=== PATIENT | male | born 1980 | race Two or more races ===

== ENCOUNTER 2020-03-12 15:56 | Outpatient (REF) | payer OTHER, SELFPAY | END 2020-03-12 15:57 | disposition home or self-care (01) | LOC: HO.LAB 15:56 | PROVIDERS: Visit Provider Internal Medicine | DX: Z20.822 Contact with and (suspected) exposure to COVID-19 (principal) | CPT/HCPCS: 36415; C9803; U0003 ==

== ENCOUNTER 2020-03-16 14:44 | Outpatient (REF) | payer OTHER, SELFPAY | END 2020-03-16 14:45 | disposition home or self-care (01) | LOC: HO.LAB 14:44 | PROVIDERS: Visit Provider Internal Medicine | DX: Z20.822 Contact with and (suspected) exposure to COVID-19 (principal) | CPT/HCPCS: 36415; C9803; U0003 ==

== ENCOUNTER 2020-04-03 16:30 | Outpatient (REF) | payer OTHER, SELFPAY | END 2020-04-03 16:31 | disposition home or self-care (01) | LOC: HO.LAB 16:30 | PROVIDERS: Visit Provider Internal Medicine | DX: Z20.822 Contact with and (suspected) exposure to COVID-19 (principal) | CPT/HCPCS: 36415; C9803; U0003; U0005 ==

== ENCOUNTER 2020-06-01 15:47 | Outpatient (REF) | payer OTHER, SELFPAY | END 2020-06-01 15:48 | disposition home or self-care (01) | LOC: HO.LAB 15:47 | PROVIDERS: Visit Provider Internal Medicine | DX: Z20.822 Contact with and (suspected) exposure to COVID-19 (principal) | CPT/HCPCS: C9803; U0003; U0005 ==

== ENCOUNTER 2023-10-01 08:51 | Outpatient (AMB) | payer OTHER, SELFPAY ==
[2023-10-01 08:55] VITALS: BP 138/80; PULSE 85; O2SAT 98; BMI 51.6
--- NOTE | 2023-10-01 08:55 | A.OFFPC_ITS ---
Vital Signs 10/01/23 08:55 Height 5 ft 6 in Weight 320 lb BMI 51.6 BP 138/80 Blood Pressure Location Lt brachial Position Sitting Pulse 85 Pulse Source Pulse Oximeter Pulse Oximetry (%) 98 Oxygen Delivery Method Room Air Intake Visit Reasons: Over due for PE Allergies No Known Allergies Allergy (Verified 10/01/23 09:04) Medication List - Last Reconciled 10/01/23 by Teto Silva PA-C hydrochlorothiazide 12.5 mg PO DAILY 90 days miscellaneous medical supply 1 ea miscellaneous DAILY 99 days miscellaneous medical supply Prosthetic foot shell and Flexible protective cover. Prosthesis, leg As directed topiramate (Topamax) 50 mg PO BEDTIME 90 days Tobacco use date assessed: 10/01/23 Dental Screening Dental Screen Date: 10/01/23 Did you have a dental visit in the last 12 months?: Yes Did you have a dental problem in the last 6 months where you did not have access to dental care?: No Was dental information given to patient?: Patient has dentist HPI Over due for PE HPI0 Details Patient is a 43-year-old male with a past medical history significant for NF, right below-knee amputation, obesity, hypertension. Concerns--> would like to see urologist to discuss vasectomy. Also reports he has been having a rash on his left lower extremity with the appearance of fungal dermatitis. He is willing to try a cream. .. 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 Need new scripts for Right lower extremities prothestic. .. HTN: Blood pressure acceptable today in office has not been monitoring at home. He admits he has not been taking hydrochlorothiazide. Has been trying to manage his blood pressure with lifestyle and dietary modifications. .. Obesity: Patient does understand his BMI is well over 30. He does note he has a problem with overeating and has trialed Topamax 25 mg at night which has not helped him lose any weight. PLAN: He would like to trial Wegovy for weight loss. Vaccines: Up-to-date with tetanus, COVID vaccine, declines flu vaccine [facility] Surgical History No pertinent past surgical history Family History (Updated 10/01/23 @ 09:08 by Teto Silva PA-C) Mother Diabetes High blood pressure Father Prostate cancer Social History (Updated 10/01/23 @ 09:09 by Teto Silva PA-C) Housing: Apartment Alcohol intake: never Patient Tobacco Use Status: Never used Tobacco Tobacco use type: Cigarette e-Cigarette/Vaping Use: Never Used Second Hand Smoke Exposure: No service: No Current occupational status: employed Current occupation: [employer] Cognitive needs: Yes (prostetic leg) Hearing needs: No Vision needs: No Questionnaire PHQ-9 Over the last 2 weeks, how often have you been bothered by any of the following problems? 1. Little interest or pleasure in doing things: not at all 2. Feeling down, depressed, or hopeless: not at all 3. Trouble falling or staying asleep, or sleeping too much: not at all 4. Feeling tired or having little energy: not at all 5. Poor appetite or overeating: not at all 6. Feeling bad about yourself - or that you are a failure or have let yourself or your family down: not at all 7. Trouble concentrating on things, such as reading the newspaper or watching television: not at all 8. Moving or speaking so slowly that other people could have noticed. Or the opposite - being so fidgety or restless that you have been moving around a lot more than usual: not at all 9. Thoughts that you would be better off or of hurting yourself in some way: not at all Total score: 0 Depression Screening Interpretation: Negative Depression Screening Done: Yes 93102 - PHQ-9 Billing: Yes Source: Developed by Drs. Diego Magaña, Destini Maddox, Bhavesh Rivera and colleagues, with an educational pk from [employer] Thrive Questionnaire Date Thrive assessed: 10/01/23 I am a: Patient What is your living situation today?: I have a steady place to live Within the past 12 months, did the food you bought not last and you didn't have the money to get more?: Never true Within the past 12 months, did you worry whether your food would run out before you got money to buy more?: Never true Do you have trouble paying for medicines?: No Do you have trouble getting transportation to medical appointments?: No Do you have trouble paying your heating and electricity bill?: No Do you have trouble taking care of your child, family member or friend?: No Do you have trouble with day-to-day activities such as bathing, preparing meals, shopping, managing finances, etc.?: No Are you currently unemployed and looking for a job?: No Are you interested in more education?: No Currently or been in a relationship where the following occur: No concerns reported THRIVE Score: 0 AUDIT C Alcohol Use Questionnaire (AUDIT-C) 1. How often do you have a drink containing alcohol?: 2-4 times a month 2. How many drinks containing alcohol do you have on a typical day when you are drinking?: 10 or more 3. How often do you have six or more drinks on one occasion?: Never Total Score: 6 SIM-7 AMB Questionnaire SIM-7 Date SIM - 7 assessed: 10/01/23 Feeling nervous, anxious, or on edge: 0 = Not at all Not being able to stop or control worryin = Not at all Worrying too much about different things: 0 = Not at all Trouble relaxin = Not at all Being so restless that it is hard to sit still: 0 = Not at all Becoming easily annoyed or irritable: 0 = Not at all Feeling afraid as if something awful might happen: 0 = Not at all Total SIM-7 score (0-4 normal; 5-9 mild; 10-14 moderate; 15-21 severe): 0 Source: Developed by Drs. Diego Magaña, Destini Maddox, Bhavesh Rivera and colleagues, with an educational pk from [employer] SIM-7 Assessment Billing SIM-7 Assessment Tool: SIM-7 Assessment 96781 Review of Systems Const Denies body aches, Denies chills, Denies excessive sweating, Denies fatigue, Denies fever(s) and Denies headache(s) Eyes Denies blurry vision ENT Denies dysphagia, Denies vertigo, Denies dizziness, Denies headache(s), Denies hearing loss and Denies tinnitus Card Denies chest pain, Denies chest pain with activity, Denies syncope, Denies irregular heart rhythm and Denies dyspnea Resp Denies chest congestion, Denies cough, Denies hemoptysis, Denies dyspnea and Denies wheezing GI Denies abdominal pain, Denies melena, Denies hematochezia, Denies coffee ground emesis, Denies dysphagia, Denies diarrhea, Denies nausea and Denies vomiting Denies difficulty urinating, Denies dysuria, Denies urinary frequency, Denies urinary hesitancy and Denies urinary urgency Musc Denies arthralgias, Denies limited range of motion, Denies muscle cramps and Denies muscle weakness Skin/Breast Denies rash and Denies skin ulcer Neuro Denies Abnormal speech present, Denies confusion, Denies vertigo, Denies dizziness, Denies syncope, Denies headache(s), Denies memory loss and Denies seizure-like activity Psych Denies anxiety, Denies confusion, Denies depression, Denies memory loss, Denies panic attacks and Denies paranoia Endo Denies excessive sweating, Denies fatigue, Denies flushing, Denies polydipsia and Denies polyuria Aller/Immun Denies wheezing Physical exam (Primary Care) Vital Signs: Last Vital Signs Pulse 85 10/01/23 08:55 BP 138/80 10/01/23 08:55 Pulse Ox 98 10/01/23 08:55 Oxygen Delivery Method Room Air 10/01/23 08:55 BMI result Body Mass Index 51.6 BMI Assessment/Plan discussion: High BMI High, discussed plan: lifestyle, weight reduction, dietary and physical activity Tobacco/Smoking Status: Tobacco use Status Tobacco use date assessed 10/01/23 10/01/23 09:01 Patient Tobacco Use Status Never used Tobacco 10/01/23 09:01 Tobacco use type Cigarette 10/01/23 09:01 e-Cigarette/Vaping Use Never Used 10/01/23 09:01 PHQ-9: PHQ-9 Score PHQ-9: Total score 0 10/01/23 09:01 Depression Screening Interpretation: Negative Thrive Assessment: Date of Thrive Assessment Date Thrive assessed 10/01/23 10/01/23 09:01 Currently or been in a relationship where the following occur: No concerns reported Const Other: OBESE General: cooperative, comfortable, no acute distress, alert and awake; No confusion Orientation/consciousness: oriented to person, oriented to place, patient oriented x3 and No confusion HENMT Head: Yes normocephalic Ears: external ears normal and TM's normal bilaterally Face and sinus: No sinus tenderness Mouth: Normal oral and palatal mucosa present and tongue normal Teeth and gingiva: dentition normal and gingiva normal Throat: Yes posterior oropharynx normal, Yes tonsils normal and Yes uvula midline Eyes Conjunctivae: conjunctivae normal Sclerae: sclerae normal Pupils: Equal, round and reactive pupils present EOM: EOMs intact bilaterally Direct Ophthalmoscopy: No no photophobia Neck Neck: Yes no lymphadenopathy, No tender and Yes no JVD Thyroid: Thyroid normal Carotids: no bruits Chest Chest palpation & inspection: no tenderness Resp Effort & Inspection: normal respiratory effort, no audible wheezes, not labored and no stridor Auscultation: no crackles, no rales, no rhonchi and no wheezes Cardio Jugular venous distension: no JVD Rate: regular rate, not bradycardic and not tachycardic Rhythm: regular rhythm Bruits: no carotid bruits Peripheral pulses: Peripheral pulses 2+ throughout GI Inspection: Yes normal to inspection, No abdominal wall ecchymosis and No visible herniation Palpation (GI): Soft to palpation, nontender, no guarding, not rigid and No hepatosplenomegaly present Auscultation: normoactive bowel sounds General: Yes no CVA tenderness Back/Spine/Pelvis Back: no CVA tenderness and No back tenderness Cervical Spine: cervical ROM normal Thoracic/Lumbar Spine: thoracic and lumbar spine normal to inspection, straight leg raise negative bilaterally, No thoraco-lumbar ROM limited and No lumbar spinal tenderness Skin Lesions: no lesions Rashes: no rashes Wounds: no wounds Neuro General: oriented to person, oriented to place, patient oriented x3, CN's II-XI intact bilaterally and No confusion Cranial nerves: Yes Equal, round and reactive pupils present and Yes Normal accommodation reflex present Cognition (Neuro): normal cognition Speech: No Abnormal speech present Gait exam (Neuro): Normal gait present Motor exam (neuro): 5/5 motor strength present throughout Extrem Right upper extremity: full ROM; no cyanosis Left upper extremity: full ROM; no cyanosis Right lower extremity: no edema Left lower extremity: no edema Psych Appearance: grossly normal Mental Status: mental status grossly normal Affect: normal affect Attitude: cooperative Thought process: Normal thought process present Assessment and Plan Assessment & Plan (1) Annual physical exam: Code(s): Z00.00 - Encounter for general adult medical examination without abnormal findings (2) History of right below knee amputation: Code(s): Z89.511 - Acquired absence of right leg below knee Plan: Needs new script for prosthetic leg, gel liners and shell Patient go stay hangers for fittings (3) Neurofibromatosis: Code(s): Q85.00 - Neurofibromatosis, unspecified Plan: Patient with a history of neurofibromatosis as a child which has led to his Right lower extremity. He does have nodules over his right upper extremity and torso that often getting inflamed and irritated. He would like to see a truss maker for evaluation and possible removal. (4) HTN (hypertension): Code(s): I10 - Essential (primary) hypertension Qualifiers: Hypertension type: primary hypertension Qualified Code(s): I10 - Essential (primary) hypertension Plan: Blood pressure acceptable today in office,. Has not been taking hydrochlorothiazide 12.5 . Advised to restart medication. Goal blood pressures to be below 140/90 (5) Obese: Code(s): E66.9 - Obesity, unspecified Qualifiers: Obesity type: due to excess calories Obesity classification: adult class 3 (BMI >= 40) Serious obesity comorbidity presence: with serious comorbidity Body mass index: BMI 50.0-59.9 Qualified Code(s): E66.01 - Morbid (severe) obesity due to excess calories; Z68.43 - Body mass index [BMI] 50.0- 59.9, adult Plan: Patient does understand his BMI is over 50, has tried p.o. medication should his Topamax though has not been effective. Has struggled losing weight. He is willing to try a GLP 1 to help him lose weight. He does have comorbidity of hypertension. Will start with Wegovy 0.25 and follow-up with patient in 6 weeks for weight check (6) Vasectomy evaluation: Code(s): Z30.09 - Encounter for other general counseling and advice on contraception Plan: Patient interested in vasectomy. Will refer to Urology for evaluation. (7) Fungal dermatitis: Code(s): B36.9 - Superficial mycosis, unspecified Plan: Has what appears to be fungal dermatitis over his left lower extremity. Will supply patient with clotrimazole antifungal cream Orders: Orders Microalbumin, Random (w Creat) Today I10 - Essential (primary) hypertension Comprehensive [place]. Panel Fast Today I10 - Essential (primary) hypertension Complete Blood Count no Diff Today I10 - Essential (primary) hypertension Prostate Specific Antigen Scr Today I10 - Essential (primary) hypertension, Z12.5 - Encounter for screening for malignant neoplasm of prostate Referrals Urology Referral Z30.09 - Encounter for other general counseling and advice on contraception Medications: New semaglutide (weight loss) (Wegovy) administer weeks 1 through 4 of therapy 0.25 mg (0.5 mL) subcut QWEEK 4 weeks 2 mL 0RF E66.01 - Morbid (severe) obesity due to excess calories, I10 - Es sential (primary) hypertension, Z68.43 - Body mass index [BMI] 50.0-59.9, adult clotrimazole-betamethasone 1-0.05 % 1 appl topical BID 30 days 45 grams 0RF B36.9 - Superficial mycosis, unspecified Discontinued hydrochlorothiazide Discontinued Reason: Doctor's Order 12.5 mg PO DAILY 90 days 90 tabs 1RF I10 - Essential (primary) hypertension topiramate (Topamax) Discontinued Reason: Doctor's Order 50 mg PO BEDTIME 90 days 90 tabs 1RF E66.01 - Morbid (severe) obesity due to excess calories, I10 - Essential (primary) hypertension, Z68.43 - Body mass index [BMI] 50.0-59.9, adult Patient Instructions: Goal: Blood pressure to remain below 140/90 Barriers: Adherence to physical activity and healthy eating habits Coding Level of Care Code Est Pt Prev Care 40-64y(29472) Diagnoses Annual physical exam Z00.00 History of right below knee amputation Z89.511 Neurofibromatosis Q85.00 Primary hypertension I10 Hypertension type: primary hypertension Class 3 severe obesity due to excess calories with serious comorbidity and body mass index (BMI) of 50.0 to 59.9 in adult E66.01; Z68.43 Obesity type: due to excess calories Obesity classification: adult class 3 (BMI >= 40) Serious obesity comorbidity presence: with serious comorbidity Body mass index: BMI 50.0-59.9 Vasectomy evaluation Z30.09 Fungal dermatitis B36.9 Additional Codes SIM-7 Assessment Billing - SIM-7 Assessment Tool: SIM-7 Assessment [id number] ([id number])
== END 2023-10-01 09:32 | disposition home or self-care (01) ==
PROVIDERS: PCP Physician Assistant; Visit Provider Physician Assistant
DX: Z00.00 Encounter for general adult medical examination without abnormal findings (principal); Z89.511 Acquired absence of right leg below knee; Q85.00 Neurofibromatosis, unspecified; E66.01 Morbid (severe) obesity due to excess calories; Z68.43 Body mass index [BMI] 50.0-59.9, adult; I10 Essential (primary) hypertension; Z30.09 Encounter for other general counseling and advice on contraception; B36.9 Superficial mycosis, unspecified
CPT/HCPCS: 99396

== ENCOUNTER 2023-11-13 11:32 | Outpatient (REF) | payer OTHER, SELFPAY ==
[2023-11-13 12:38] LABS: Hematocrit 42.3 % (42.0-52.0); Mean Corpuscular HGB Conc 35.5 g/dl (31.0-36.0); Mean Corpuscular Hemoglobin 29.6 pg (27.0-33.0); Mean Corpuscular Volume 83.4 fL (80.0-98.0); Mean Platelet Volume 11.2 fL (9.4-12.4); Platelet Count 239 X10*3/uL (160-400); Red Blood Count 5.07 X10*6/uL (4.60-5.80); Red Cell Distribution Width 12.6 % (11.0-16.0); White Blood Count 6.7 X10*3/uL (4.8-10.8)
[2023-11-13 12:58] LABS: Alanine Aminotransferase 24 U/L (0-40); Albumin Level 3.7 g/dL (3.5-5.0); Alkaline Phosphatase 66 U/L (39-117); Anion Gap 10 (12-20); Aspartate Amino Transferase 19 U/L (5-37); Bilirubin Total 0.7 mg/dL (0.0-1.0); Blood Urea Nitrogen 13 mg/dL (9-16); Calcium 8.5 mg/dL (8.4-10.2); Carbon Dioxide 25 mmol/L (22-29); Chloride 108 mmol/L (96-108); Estimated Glomerular Filt Rate > 60; Glucose Fasting 82 mg/dL (60-99); Potassium 3.9 mmol/L (3.3-5.1); Sodium 139 mmol/L (135-145)
[2023-11-13 13:12] LABS: Microalbum/Creatinine Ratio Ur 10.5 ug/mg cr (<30)
== END 2023-11-13 11:33 | disposition home or self-care (01) ==
LOC: HO.LAB 11:32
PROVIDERS: PCP Physician Assistant; Visit Provider Physician Assistant
DX: I10 Essential (primary) hypertension (principal); Z12.5 Encounter for screening for malignant neoplasm of prostate
CPT/HCPCS: 36415; 80053; 82043; 82570; 84153; 85027

== ENCOUNTER 2023-11-18 15:16 | Outpatient (AMB) | payer OTHER, SELFPAY ==
[2023-11-18 15:28] VITALS: BP 128/82; PULSE 90; O2SAT 96; BMI 52.0
--- NOTE | 2023-11-18 15:28 | MHC.PC.OV ---
Vital Signs 11/18/23 15:28 Height 5 ft 6 in Weight 322 lb 8 oz BMI 52.0 BP 128/82 Blood Pressure Location Lt brachial Position Sitting Pulse 90 Pulse Source Pulse Oximeter Pulse Oximetry (%) 96 Oxygen Delivery Method Room Air Intake Visit Reasons: f/u Weight check Rattan Worker Required: No Accompanied by: Self / Same As Patient Allergies No Known Allergies Allergy (Verified 11/18/23 15:39) Medication List - Last Reconciled 11/18/23 by Teto Silva PA-C clotrimazole-betamethasone 1-0.05 % 1 appl topical BID 30 days miscellaneous medical supply 1 ea miscellaneous DAILY 99 days miscellaneous medical supply Prosthetic foot shell and Flexible protective cover. Prosthesis, leg As directed semaglutide (weight loss) (Wegovy) 0.25 mg (0.5 mL) subcut QWEEK 4 weeks Tobacco use date assessed: 10/01/23 Dental Screening Dental Screen Date: 10/01/23 HPI f/u Weight check HPI Details Patient is a 43-year-old male here today for follow-up visit. Patient is Bulgarian-speaking only thus used a remote communications programmer. At last visit we discussed his weight and he was interested in starting a GLP 1. Unfortunately unable to receive wegovy due to some insurance reason. [facility] Surgical History No pertinent past surgical history Family History Mother Diabetes High blood pressure Father Prostate cancer Social History Housing: Apartment Alcohol intake: never Patient Tobacco Use Status: Never used Tobacco Tobacco use type: Cigarette e-Cigarette/Vaping Use: Never Used Second Hand Smoke Exposure: No service: No Current occupational status: employed Current occupation: [employer] Cognitive needs: Yes (prostetic leg) Hearing needs: No Vision needs: No Questionnaire Thrive Questionnaire Date Thrive assessed: 10/01/23 Are you currently unemployed and looking for a job?: No SIM-7 AMB Questionnaire SIM-7 Date SIM - 7 assessed: 10/01/23 Source: Developed by Drs. Diego Magaña, Destini Maddox, Bhavesh Rivera and colleagues, with an educational pk from [employer]. Review of Systems Const Denies headache(s) Eyes Denies loss of vision ENT Denies vertigo, Denies dizziness, Denies headache(s) and Denies sore throat Card Denies chest pain, Denies leg edema and Denies lightheadedness Resp Denies cough, Denies hemoptysis and Denies wheezing GI Denies abdominal pain, Denies melena, Denies constipation, Denies diarrhea and Denies vomiting Denies dysuria, Denies urinary frequency and Denies urinary urgency Musc Denies arthralgias, Denies joint swelling, Denies numbness and Denies tingling Neuro Denies Abnormal speech present, Denies behavioral changes, Denies vertigo, Denies dizziness, Denies headache(s), Denies loss of vision, Denies memory loss, Denies numbness and Denies tingling Psych Denies anxiety, Denies behavioral changes, Denies depression, Denies memory loss and Denies panic attacks Naveen/Lymph Denies easy bleeding and Denies easy bruising Aller/Immun Denies wheezing Physical exam (Primary Care) Vital Signs: Last Vital Signs Pulse 90 11/18/23 15:28 BP 128/82 11/18/23 15:28 Pulse Ox 96 11/18/23 15:28 Oxygen Delivery Method Room Air 11/18/23 15:28 BMI result Body Mass Index 52.0 Tobacco/Smoking Status: Tobacco use Status Tobacco use date assessed 10/01/23 11/18/23 15:28 Patient Tobacco Use Status Never used Tobacco 11/18/23 15:28 Tobacco use type Cigarette 11/18/23 15:28 e-Cigarette/Vaping Use Never Used 11/18/23 15:28 Thrive Assessment: Date of Thrive Assessment Date Thrive assessed 10/01/23 11/18/23 15:28 Const General: healthy appearing, no acute distress, alert and awake Nutritional Appearance: well nourished Orientation/consciousness: oriented to person, oriented to place and oriented to time HENMT Ears: TM's normal bilaterally General nose exam: Normal nasal mucous membranes and turbinates present Eyes Conjunctivae: conjunctivae normal Sclerae: sclerae normal Pupils: Equal, round and reactive pupils present Neck Neck: Yes no lymphadenopathy and Yes no JVD Thyroid: Thyroid normal Carotids: no bruits Resp Effort & Inspection: normal respiratory effort and not tachypneic Auscultation: no crackles, no rales, no rhonchi and no wheezes Cardio Rate: regular rate Rhythm: regular rhythm Heart sounds: no murmurs and normal S1 and S2 GI Palpation (GI): Soft to palpation, nontender, no hepatomegaly and no splenomegaly Auscultation: normal bowel sounds Skin General skin exam: no rashes or lesions noted and dry skin Neuro General: oriented to person, oriented to place and oriented to time Cranial nerves: Yes Equal, round and reactive pupils present Speech: No Abnormal speech present Gait exam (Neuro): Normal gait present Motor exam (neuro): no tremor noted Extrem Right upper extremity: full ROM Left upper extremity: full ROM Right lower extremity: full ROM; no edema Left lower extremity: full ROM; no edema Psych Mental Status: mental status grossly normal Speech and movement: Normal speech and movement present Affect: normal affect Attitude: cooperative Thought process: Normal thought process present Assessment and Plan Assessment & Plan (1) Obese: Code(s): E66.9 - Obesity, unspecified Qualifiers: Body mass index: BMI 50.0-59.9 Obesity classification: adult class 3 (BMI >= 40) Obesity type: due to excess calories Serious obesity comorbidity presence: with serious comorbidity Qualified Code(s): E66.01 - Morbid (severe) obesity due to excess calories; Z68.43 - Body mass index [BMI] 50.0-59.9, adult Plan: Patient does understand his BMI is over 50, has tried p.o. medication should his Topamax though has not been effective. Has struggled losing weight and has been trying with lifestyle modification for over 3 months.. We have prescribed Wegovy though has not been improved by insurance. We will be trying a prior approval to see if we can get medication approved as he would benefit from this medication. Losing weight would help reduce his blood pressure, cardiovascular risk and he is an amputee thus will reduce his risk of skin breakdown at his amputation site Coding Level of Care Code Est Pt Level 3 (89788) Diagnoses Class 3 severe obesity due to excess calories with serious comorbidity and body mass index (BMI) of 50.0 to 59.9 in adult E66.01; Z68.43 Body mass index: BMI 50.0-59.9 Obesity classification: adult class 3 (BMI >= 40) Obesity type: due to excess calories Serious obesity comorbidity presence: with serious comorbidity
== END 2023-11-18 15:50 | disposition home or self-care (01) ==
PROVIDERS: PCP Physician Assistant; Visit Provider Physician Assistant
DX: E66.01 Morbid (severe) obesity due to excess calories (principal); Z68.43 Body mass index [BMI] 50.0-59.9, adult

== ENCOUNTER → 2023-11-18 15:16 | Outpatient (BNVA) | payer OTHER, SELFPAY | PROVIDERS: PCP Physician Assistant; Visit Provider Physician Assistant | DX: E66.01 Morbid (severe) obesity due to excess calories (principal); Z68.43 Body mass index [BMI] 50.0-59.9, adult ==

== ENCOUNTER 2024-01-05 15:32 | Outpatient (AMB) | payer OTHER, SELFPAY ==
--- NOTE | 2024-01-05 15:51 | MHC.OFFVIS ---
Intake Visit Reasons: Vasectomy Consult(pt N/S Last Visit) Intake Note: New patient is present for Vasectomy Consult Has 1 Child Can Filling Room Sweeper Required: No Beauty Director: Beauty Director Present Accompanied by: Spouse Allergies No Known Allergies Allergy (Verified 01/05/24 16:11) HPI Comments Details: Kaleb is a very pleasant male. He is a patient of Dr. Silva. He is seen for the following urologic condition - anxiety about health - Vasectomy evaluation Vasectomy evaluation The patient presents for vasectomy consultation. He is currently He has fathered - to child, with a single partner. The youngest child is - older than 1 year. His partner is aware and permissive for a vasectomy Current form of control is barrier. The vasectomy may be complicated due to a history of [no] complicating issues, inguinal hernia repair, orchidopexy, history of orchitis, orchiectomy. Patient education has been provided via AUA video, via printed information, risks of failure, recovery time, bruising and potential pain syndrome have been stressed Discussion today focused on the presence of vasectomy and the risks, benefits and alternatives that are available. Vasectomy as intended as a permanent form of control. Printed information and literature was provided to the patient. Overall there is a one in 2500 failure rate. This can occur at any time after vasectomy. Risks were discussed highlighting hematoma, spermatocele, epididymal congestion, development of sperm antibodies, and development of chronic pain estimated between 1-5%. The procedure was reviewed in detail. Anatomical diagrams of the male genitalia were used to explain the location of the vas deferens. The vas deferens will be transected, the proximal end will be cauterized, a metal clip would be applied to separate the 2 vas deferens ends. It was explained the procedure will be done in the office and takes approximately 10-15 minutes. Less common problems that arise with vasectomy include hematoma, bleeding, allergic reaction to anesthetic, epididymal infection, epididymal congestion, scrotal discomfort, spermatic leak, spermatic granuloma and the possibility of antisperm antibodies. He understands these risks and wishes to proceed. Consent was signed at the office today. He also understands that it takes 12 weeks for sperm to fully clear the system. He will need to provide a semen sample at 12 weeks and if this is not clear a 2nd sample at 16 weeks. Medical clearance to stop using protection will only be provided if he satisfies published criteria for sperm clearance. [facility] Surgical History No pertinent past surgical history Family History Mother Diabetes High blood pressure Father Prostate cancer Social History Housing: Apartment Alcohol intake: never Patient Tobacco Use Status: Never used Tobacco Tobacco use type: Cigarette e-Cigarette/Vaping Use: Never Used Second Hand Smoke Exposure: No service: No Current occupational status: employed Current occupation: [employer] Cognitive needs: Yes (prostetic leg) Hearing needs: No Vision needs: No Review of Systems Const Denies chills and Denies fever(s) Card Reports no additional complaints and Denies syncope Resp Denies cough GI Denies abdominal pain and Denies heartburn Reports as per HPI and Denies change in libido Neuro Denies syncope Psych Denies change in libido Endo Denies change in libido Physical Exam Const General: cooperative, healthy appearing, comfortable and no acute distress Orientation/consciousness: patient oriented x3 HEENT Face and sinus: Yes normal facial exam Mouth: moist mucous membranes Neck Neck: Yes normal visual inspection, Yes full ROM and Yes trachea midline Chest Chest palpation & inspection: normal inspection of the chest Resp Effort & Inspection: normal respiratory effort, able to speak in complete sentences and no respiratory distress GI Inspection: Yes normal to inspection Back/Spine/Pelvis Cervical Spine: normal cervical lordosis Thoracic/Lumbar Spine: thoracic and lumbar spine normal to inspection Skin General skin exam: no rashes or lesions noted Neuro General: patient oriented x3, gait normal, tone normal and moves all extremities Extrem General: Yes normal to inspection and Yes capillary refill normal Assessment & Plan Assessment & Plan (1) Anxiety about health: Code(s): R45.89 - Other symptoms and signs involving emotional state Category: Medical Plan Plan vasectomy Medications: New acetaminophen-codeine 300-30 mg Taken each night after vasectomy to help sleep if needed 1 tab PO Q8H 9 tabs 0RF 3 days R4.89 - Other symptoms and signs involving emotional state diazepam Take medication after arrival at office 2 mg PO BID PRN 2 tabs 0RF anxiety 1 day R45.89 - Other symptoms and signs involving emotional state Patient Instructions: Imaging studies, laboratory and physical exam results were discussed and reviewed in detail. No major barriers to patient understanding were identified. An opportunity to ask questions regarding the treatment plan was provided. All questions were answered. The patient expressed understanding and agreement with the above treatment plan. The patient is aware they should contact our office by phone for worsening of their current condition or the appearance of new urologic symptoms. Compliance is encouraged with any medications and followup testing that is ordered. It is a privilege to participate in the urologic care of your patient. If you have any questions or concerns regarding treatment for the above conditions, or other urologic issues, please do not hesitate to contact me. The office telephone contact is [phone]. This note is constructed using voice recognition software. While every effort has been made to ensure accuracy corrosion control fitter errors may have been included. Yours sincerely, Dr Javi Morales MD, [facility] - Urology Providers of Expert, Compassionate Care for the Genitourinary System Coding Level of Care Code New Pt Level 4 (57567) Diagnoses Anxiety about health R45.89
== END 2024-01-05 16:31 | disposition home or self-care (01) ==
PROVIDERS: PCP Physician Assistant; Visit Provider Urology
DX: R45.89 Other symptoms and signs involving emotional state (principal)
CPT/HCPCS: 99204

== ENCOUNTER 2024-04-28 11:15 | Outpatient (AMB) | payer OTHER, SELFPAY ==
--- NOTE | 2024-04-28 11:18 | MHC.PC.OV ---
Vital Signs 04/28/24 11:19 Height 5 ft 6 in Weight 315 lb BMI 50.8 BP 138/82 Blood Pressure Location Lt brachial Position Sitting Pulse 89 Pulse Source Pulse Oximeter Pulse Oximetry (%) 97 Oxygen Delivery Method Room Air Intake Visit Reasons: Weight Check Electronic Systems Security Assessment Required: No Electronic Systems Security Assessment Name: spouse interpreting Accompanied by: Spouse Allergies No Known Allergies Allergy (Verified 04/28/24 11:36) Medication List - Last Reconciled 04/28/24 by Teto Silva PA-C acetaminophen-codeine 300-30 mg 1 tab PO Q8H 3 days clotrimazole-betamethasone 1-0.05 % 1 appl topical BID 30 days diazepam 2 mg PO BID PRN 1 day miscellaneous medical supply 1 ea miscellaneous DAILY 99 days miscellaneous medical supply Prosthetic foot shell and Flexible protective cover. phentermine 37.5 mg PO DAILY 28 days Prosthesis, leg As directed Tobacco use date assessed: 04/28/24 Dental Screening Dental Screen Date: 04/28/24 Did you have a dental visit in the last 12 months?: No Did you have a dental problem in the last 6 months where you did not have access to dental care?: No Was dental information given to patient?: Patient has dentist HPI Weight Check HPI Details Patient is a 43-year-old male here today for follow-up visit. Patient has a past medical history significant for obesity, right below-knee amputation, .. Concern--> has noted a lump over his mid abdomen. He does report at times it is tender. He denies any difficulties using the restroom. Class 3 obesity: Discussed his obesity to which we tried GLP 1 though did not get covered by insurance. We have started phentermine he has been able to lose weight. Unfortunately phentermine had caused erectile dysfunction and he has stopped the medication. We did discuss perhaps going to weight management program though he is not interested in bariatric surgery. [facility] Surgical History No pertinent past surgical history Family History Mother Diabetes High blood pressure Father Prostate cancer Social History Housing: Apartment Alcohol intake: never Patient Tobacco Use Status: Never used Tobacco e-Cigarette/Vaping Use: Never Used Second Hand Smoke Exposure: No service: No Current occupational status: employed Current occupation: [employer] Current occupational exposures/hazards: No Cognitive needs: Yes (prostetic leg) Hearing needs: No Vision needs: No Questionnaire PHQ-9 Over the last 2 weeks, how often have you been bothered by any of the following problems? 1. Little interest or pleasure in doing things: not at all 2. Feeling down, depressed, or hopeless: not at all 3. Trouble falling or staying asleep, or sleeping too much: not at all 4. Feeling tired or having little energy: not at all 5. Poor appetite or overeating: not at all 6. Feeling bad about yourself - or that you are a failure or have let yourself or your family down: not at all 7. Trouble concentrating on things, such as reading the newspaper or watching television: not at all 8. Moving or speaking so slowly that other people could have noticed. Or the opposite - being so fidgety or restless that you have been moving around a lot more than usual: not at all 9. Thoughts that you would be better off or of hurting yourself in some way: not at all Total score: 0 Depression Screening Interpretation: Negative Depression Screening Done: Yes Source: Developed by Drs. Diego Magaña, Destini Maddox, Bhavesh iRvera and colleagues, with an educational pk from [employer]. Thrive Questionnaire Date Thrive assessed: 04/28/24 I am a: Patient What is your living situation today?: I have a steady place to live Within the past 12 months, did the food you bought not last and you didn't have the money to get more?: Never true Within the past 12 months, did you worry whether your food would run out before you got money to buy more?: Never true Do you have trouble paying for medicines?: No Do you have trouble getting transportation to medical appointments?: No Do you have trouble paying your heating and electricity bill?: No Do you have trouble taking care of your child, family member or friend?: No Do you have trouble with day-to-day activities such as bathing, preparing meals, shopping, managing finances, etc.?: No Are you currently unemployed and looking for a job?: No Are you interested in more education?: No Please select the resources that you would like help with: None Currently or been in a relationship where the following occur: No concerns reported THRIVE Score: 0 AUDIT C Alcohol Use Questionnaire (AUDIT-C) 1. How often do you have a drink containing alcohol?: 2-4 times a month 2. How many drinks containing alcohol do you have on a typical day when you are drinking?: 3 or 4 3. How often do you have six or more drinks on one occasion?: Never Total Score: 3 SIM-7 AMB Questionnaire SIM-7 Date SIM - 7 assessed: 04/28/24 Feeling nervous, anxious, or on edge: 0 = Not at all Not being able to stop or control worryin = Not at all Worrying too much about different things: 0 = Not at all Trouble relaxin = Not at all Being so restless that it is hard to sit still: 0 = Not at all Becoming easily annoyed or irritable: 0 = Not at all Feeling afraid as if something awful might happen: 0 = Not at all Total SIM-7 score (0-4 normal; 5-9 mild; 10-14 moderate; 15-21 severe): 0 Source: Developed by Drs. Diego Magaña, Destini Maddox, Bhavesh Rivera and colleagues, with an educational pk from [employer]. Review of Systems Const Denies headache(s) Eyes Denies loss of vision ENT Denies vertigo, Denies dizziness, Denies headache(s) and Denies sore throat Card Denies chest pain, Denies leg edema and Denies lightheadedness Resp Denies cough, Denies hemoptysis and Denies wheezing GI Denies abdominal pain, Denies melena, Denies constipation, Denies diarrhea and Denies vomiting Denies dysuria, Denies urinary frequency and Denies urinary urgency Musc Denies arthralgias, Denies joint swelling, Denies numbness and Denies tingling Neuro Denies Abnormal speech present, Denies behavioral changes, Denies vertigo, Denies dizziness, Denies headache(s), Denies loss of vision, Denies memory loss, Denies numbness and Denies tingling Psych Denies anxiety, Denies behavioral changes, Denies depression, Denies memory loss and Denies panic attacks Naveen/Lymph Denies easy bleeding and Denies easy bruising Aller/Immun Denies wheezing Physical exam (Primary Care) Vital Signs: Last Vital Signs Pulse 89 04/28/24 11:19 BP 138/82 04/28/24 11:19 Pulse Ox 97 04/28/24 11:19 Oxygen Delivery Method Room Air 04/28/24 11:19 BMI result Body Mass Index 50.8 BMI Assessment/Plan discussion: High BMI High, discussed plan: lifestyle, weight reduction, dietary and physical activity Tobacco/Smoking Status: Tobacco use Status Tobacco use date assessed 04/28/24 04/28/24 11:23 Patient Tobacco Use Status Never used Tobacco 04/28/24 11:23 Tobacco use type 04/28/24 11:23 e-Cigarette/Vaping Use Never Used 04/28/24 11:23 PHQ-9: PHQ-9 Score PHQ-9: Total score 0 04/28/24 11:39 Depression Screening Interpretation: Negative Thrive Assessment: Date of Thrive Assessment Date Thrive assessed 04/28/24 04/28/24 11:26 Currently or been in a relationship where the following occur: No concerns reported Const General: healthy appearing, no acute distress, alert and awake Nutritional Appearance: well nourished Orientation/consciousness: oriented to person, oriented to place and oriented to time HENMT Ears: TM's normal bilaterally General nose exam: Normal nasal mucous membranes and turbinates present Eyes Conjunctivae: conjunctivae normal Sclerae: sclerae normal Pupils: Equal, round and reactive pupils present Neck Neck: Yes no lymphadenopathy and Yes no JVD Thyroid: Thyroid normal Carotids: no bruits Resp Effort & Inspection: normal respiratory effort and not tachypneic Auscultation: no crackles, no rales, no rhonchi and no wheezes Cardio Rate: regular rate Rhythm: regular rhythm Heart sounds: no murmurs and normal S1 and S2 GI Palpation (GI): Soft to palpation, nontender, no hepatomegaly and no splenomegaly Auscultation: normal bowel sounds Skin General skin exam: no rashes or lesions noted and dry skin Neuro General: oriented to person, oriented to place and oriented to time Cranial nerves: Yes Equal, round and reactive pupils present Speech: No Abnormal speech present Gait exam (Neuro): Normal gait present Motor exam (neuro): no tremor noted Extrem Other: RIGHT BELOW-KNEE AMPUTATION NOTED Right upper extremity: full ROM Left upper extremity: full ROM Right lower extremity: full ROM; no edema Left lower extremity: full ROM; no edema Psych Mental Status: mental status grossly normal Speech and movement: Normal speech and movement present Affect: normal affect Attitude: cooperative Thought process: Normal thought process present Coding Level of Care Code Est Pt Level 4 (53473) Diagnoses Class 3 obesity E66.813 Umbilical hernia with obstruction, without gangrene K42.0 Obstruction and gangrene presence: with obstruction but without gangrene History of right below knee amputation Z89.511 Assessment & Plan Assessment & Plan (1) Class 3 obesity: Code(s): E66.813 - Obesity, class 3 Category: Medical Plan: Patient's BMI is over 50, has not been able to get GLP 1 covered through insurance. Had tried phentermine and has been able to lose a bit of weight though had side effects of rectal dysfunction. He will try also online options to get GLP (2) Umbilical hernia: Code(s): K42.9 - Umbilical hernia without obstruction or gangrene Category: Medical Qualifiers: Obstruction and gangrene presence: with obstruction but without gangrene Qualified Code(s): K42.0 - Umbilical hernia with obstruction, without gangrene Plan: Patient has been experiencing some umbilical and mid abdomen pain and a notable lump. Most consistent with an abdominal hernia. Will send for CT to evaluate. Will also refer to general surgeon for possible (3) History of right below knee amputation: Code(s): Z89.511 - Acquired absence of right leg below knee Category: Surgical Plan: Patient is in need of a skin liner for his prosthesis. Will fax paper script. Orders: Orders Microalbumin, Random (w Creat) 04/28/24 I10 - Essential (primary) hypertension Comprehensive [place]. Panel Fast 04/28/24 I10 - Essential (primary) hypertension Complete Blood Count no Diff 04/28/24 I10 - Essential (primary) hypertension CT abdomen pelvis wo IV con 04/28/24 K42.9 - Umbilical hernia without obstruction or gangrene Referrals General Surgery Referral K42.9 - Umbilical hernia without obstruction or gangrene Medications: New [Prosthesis skin] As directed 1 ea 0RF Z89.511 - Acquired absence of right leg below knee Discontinued phentermine must administer 30 minutes before or 1-2 hours after breakfast Discontinued Reason: Doctor's Order 37.5 mg PO DAILY 28 days 28 [facility] 0 E66.01 - Morbid (severe) obesity due to excess calories, Z68.43 - Body mass index [BMI] 50.0-59.9, adult
[2024-04-28 11:19] VITALS: BP 138/82; PULSE 89; O2SAT 97; BMI 50.8
== END 2024-04-28 11:47 | disposition home or self-care (01) ==
PROVIDERS: PCP Physician Assistant; Visit Provider Physician Assistant
DX: K42.0 Umbilical hernia with obstruction, without gangrene (principal); E66.813 Obesity, class 3; Z89.511 Acquired absence of right leg below knee; Z68.43 Body mass index [BMI] 50.0-59.9, adult

== ENCOUNTER 2024-06-27 15:03 | Outpatient (AMB) | payer OTHER, SELFPAY ==
--- NOTE | 2024-06-27 15:04 | A.OFFVIS_ITS ---
Vital Signs 06/27/24 15:05 Height 5 ft 6 in Weight 315 lb 11.231 oz BMI 51.0 BP 140/87 H Blood Pressure Location Lt brachial Position Sitting Pulse 82 Pulse Source Pulse Oximeter Pulse Oximetry (%) 96 Oxygen Delivery Method Room Air Intake Visit Reasons: umbilical hernia Intake Note: Patient referred by pcp Dr. Teto Silva PA-C for umbilical hernia. Patient c/o: painful occasionally Accompanied by: Spouse Allergies No Known Allergies Allergy (Verified 06/27/24 15:07) Medication List - Last Reconciled 06/27/24 by Tom Díaz MD clotrimazole-betamethasone 1-0.05 % 1 appl topical BID 30 days diazepam 2 mg PO BID PRN 1 day miscellaneous medical supply 1 ea miscellaneous DAILY 99 days miscellaneous medical supply Prosthetic foot shell and Flexible protective cover. [Prosthesis skin As directed] Prosthesis, leg As directed HPI HPI umbilical hernia: Details: 43-year-old male referred for an umbilical hernia. According to his , he had told his primary care physician on previous visits about a ?lump? above his umbilicus which has been bothering him. He has had this for more than 5 years but his says this has been increasing in size. He denies GI complaints He is morbidly obese. His primary care physician had wanted him to be on a GLP1 medication but he was unable to to get this because of absence of insurance [place] for this particular medication [facility] Medical History (Updated 06/27/24 @ 15:24 by Tom Díaz MD) Supraumbilical hernia Morbid obesity Surgical History No pertinent past surgical history Family History Mother Diabetes High blood pressure Father Prostate cancer Social History Housing: Apartment Alcohol intake: never Patient Tobacco Use Status: Never used Tobacco e-Cigarette/Vaping Use: Never Used Second Hand Smoke Exposure: No service: No Current occupational status: employed Current occupation: [employer] Current occupational exposures/hazards: No Cognitive needs: Yes (prostetic leg) Hearing needs: No Vision needs: No Review of Systems Const Denies chills and Denies fever(s) Card Denies chest pain, Denies dyspnea and Denies dyspnea on exertion Resp Denies cough, Denies dyspnea and Denies dyspnea on exertion GI Denies hematochezia and Denies change in bowel habits Denies hematuria and Denies difficulty urinating Musc Denies back pain and Denies limited range of motion Neuro Denies focal weakness and Denies convulsions Psych Reports anxiety, Denies depression and Denies mood swings Physical Exam Vital Signs: Last Vital Signs Pulse 82 06/27/24 15:05 Pulse Ox 96 06/27/24 15:05 Oxygen Delivery Method Room Air 06/27/24 15:05 BMI result Body Mass Index 51.0 Const Other: Morbidly obese General: comfortable and no acute distress Orientation/consciousness: patient oriented x3 Neck Neck: Yes no lymphadenopathy Resp Auscultation: clear to auscultation bilaterally Cardio Rhythm: regular rhythm GI Other: Palpable supraumbilical hernia, about 2.53 cm, more obvious with Valsalva, seems reducible at least partially Palpation (GI): Soft to palpation, nontender and no guarding Neuro General: patient oriented x3 Assessment & Plan Assessment & Plan (1) Supraumbilical hernia: Code(s): K43.9 - Ventral hernia without obstruction or gangrene Category: Medical Plan: He has a supraumbilical hernia as described above. He does admit to discomfort. I therefore explained to him the option of repair of the umbilical hernia with possible mesh. I discussed the technique of this procedure. I reviewed the risks including but not limited to bleeding, bowel injury, recurrence, postop pain, as well as the benefits and alternatives. He understands but he says he needs to talk to his work 1st prior to scheduling this. 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 I explained to him what to expect postoperatively His says that he will call the office once he is ready to proceed. He does have morbid obesity and understand that his perioperative risks with regards to anesthesia may be higher than average. He had been arranged to have a CAT scan of the abdomen by his primary care physician so we will follow up on this as well. Coding Level of Care Code New Pt Level 3 (93243) Diagnoses Supraumbilical hernia K43.9
[2024-06-27 15:05] VITALS: BP 140/87; PULSE 82; O2SAT 96; BMI 51.0
== END 2024-06-27 15:30 | disposition home or self-care (01) ==
LOC: HO.HGS 15:03
PROVIDERS: PCP Physician Assistant; Visit Provider Surgery
DX: K43.9 Ventral hernia without obstruction or gangrene (principal)
CPT/HCPCS: 99203

== ENCOUNTER 2024-08-08 19:55 | Emergency (ER) | payer OTHER, SELFPAY ==
--- NOTE | ~2024-08-08 | CT_ITS ---
CLINICAL HISTORY: periumbilical and ventral wall hernia, SBO? CT abdomen and pelvis with contrast Comparison: None Findings: No consolidation or effusion. The liver, gallbladder, spleen, pancreas, kidneys and adrenal glands are normal in appearance. No bowel obstruction, pneumoperitoneum, or pneumatosis. There is haziness within the small bowel mesentery. Nonenlarged mesenteric lymph nodes noted. Small fat containing supraumbilical hernia. No inguinal, pelvic or retroperitoneal lymphadenopathy. Pelvic contents unremarkable. Normal appendix. The bones are intact. IMPRESSION: 1. No small bowel obstruction. 2. Small fat containing supraumbilical hernia. 3. Haziness within the small bowel mesentery, a nonspecific finding that can be incidental as well as be associated with multiple medical etiologies. No significant adenopathy. This document has been electronically signed by: Quincy Mattson MD on 08/09/2024 00:17:40
[2024-08-08 19:57] VITALS: BP 140/91; PULSE 97; RESP 16; TEMP 36.8; O2SAT 97; BMI 50.0
--- NOTE | 2024-08-08 19:57 | ED_ITS ---
HPI - General Adult General Chief complaint: Abdominal Pain Stated complaint: abd pain Time Seen by Provider: 08/08/24 20:27 Source: patient and family Limitations: language barrier History of Present Illness ED Provider: Sepideh Ulrich PA-C HPI narrative: 43-year-old male with a history of morbid obesity, known supra umbilical hernia followed by Dr. Díaz, neurofibromatosis, hypertension, who presents with the abdominal pain. Patient states he developed pain in relation to his hernia, he states that it became firm and painful. His symptoms have been intermittent. Associated abdominal distention. Denies inability to pass flatus or active nausea vomiting no fever. Related Data Previous Rx's ?Medication ?Instructions ?Recorded Prosthesis, leg #1 ea 07/18/21 miscellaneous medical supply 1 ea miscellaneous DAILY 99 days 09/07/23 #4 ea miscellaneous medical supply See Rx Instructions miscellaneous 09/07/23 .COMPLEX #1 ea clotrimazole-betamethasone 1 1 appl topical BID 30 days #45 10/01/23 %-0.05 % topical cream grams diazepam 2 mg tablet 2 mg PO BID PRN anxiety 1 day #2 01/05/24 tabs Prosthesis skin #1 ea 04/28/24 Allergies Allergy/AdvReac Type Severity Reaction Status Date / Time No Known Allergies Allergy Verified 08/08/24 19:59 Review of Systems 2 Review of Systems: Yes all other systems are reviewed and are negative Constitutional: Constitutional: Denies fatigue and Denies fever(s) Cardiovascular: Cardiovascular: Denies chest pain and Denies dyspnea Respiratory: Respiratory: Denies cough and Denies dyspnea Gastrointestinal: Gastrointestinal: Reports abdominal pain, Denies diarrhea, Denies nausea and Denies vomiting Endocrine: Endocrine: Denies fatigue REPLACED BY [facility] Past Medical History Attestation statement: The following information was validated with the patient. Medical History (Updated 08/09/24 @ 01:43 by VJ Wan) Supraumbilical hernia Morbid obesity Surgical History No pertinent past surgical history Family History Family History Mother Diabetes High blood pressure Father Prostate cancer Social History Social History Housing: Apartment Alcohol intake: never Patient Tobacco Use Status: Never used Tobacco Smoked in Last 30 Days: No e-Cigarette/Vaping Use: Never Used Second Hand Smoke Exposure: No Use of substances other than those prescribed or required for medical reasons: No Advance Directives: No Advance Directives Information Provided: No service: No Current occupational status: employed Current occupation: [employer] Current occupational exposures/hazards: No Cognitive needs: Yes (prostetic leg) Hearing needs: No Vision needs: No Physical Exam ED Vital Signs: Vital Signs - 24 hr 08/08/24 19:57 08/09/24 00:10 Temperature 98.2 F 97.7 F Pulse Rate 97 67 Respiratory Rate 16 16 Blood Pressure 140/91 H 98/49 L Pulse Oximetry 97 95 Oxygen Delivery Method Room Air Room Air BMI result Body Mass Index 50.0 Const Other: Alert Orientation/consciousness: patient oriented x3 Resp Effort & Inspection: normal respiratory effort Cardio Other: Normal peripheral perfusion GI Other: Abdomen is soft, nondistended, obese, I can palpate the defect in the abdominal wall, the hernia is reducible there was no overlying skin changes/discoloration Skin Other: Warm dry no rash Neuro General: patient oriented x3, gait normal, no focal motor deficits and CN's II- XI intact bilaterally Psych Other: Cooperative Course Course Course Narrative: RME performed by Joana Cohen PA-C. Patient is a 43 year old assigned male at presenting to the emergency department with umbilical hernia pain. Detailed physical exam and review of systems are deferred to the cloud software engineer. Patient placed back in the waiting room pending room availability. Medications Administered Discontinued Medications Generic Name Dose Route Start Last Admin Trade Name Rogelioq PRN Reason Stop Dose Admin Diatrizoate Meglum/Diatrizoate Sod 30 ml 08/08/24 23:34 08/08/24 23:34 Diatrizoate Meglumine, Sodium 30 Ml Solution PO 08/08/24 23:35 30 ml ONCE ONE Administration Sodium Chloride 1,000 mls @ 999 mls/hr 08/08/24 21:30 08/08/24 23:04 Ns IV 08/08/24 22:30 Infused .Q1H1M SHILPI Infusion Iohexol 100 ml 08/08/24 23:35 08/08/24 23:35 Iohexol 350 Mg/Ml 100 Ml Infus..Btl IV 08/08/24 23:36 100 ml ONCE ONE Administration Morphine Sulfate 10 mg 08/08/24 21:20 08/08/24 21:52 Morphine Sulfate 10 Mg/Ml Cartridge IVPUSH 08/08/24 21:21 10 mg ONCE ONE Administration Protocol Ondansetron HCl 4 mg 08/08/24 21:20 08/08/24 21:52 Ondansetron Hcl 4 Mg/2 Ml Vial IVPUSH 08/08/24 21:21 4 mg ONCE ONE Administration Medical Decision Making Medical Decision Making MDM Narrative: 43-year-old male with a history of morbid obesity, known supra umbilical hernia followed by Dr. Díaz, neurofibromatosis, hypertension, who presents with the abdominal pain. Patient states he developed pain in relation to his hernia, he states that it became firm and painful. His symptoms have been intermittent. Associated abdominal distention. Denies inability to pass flatus or active nausea vomiting no fever. Problem: Morbid obesity, known hernia History: Per patient I have considered the following differential diagnoses: Bowel obstruction, incarcerated hernia, strangulated hernia, necrotic bowel, constipation Plan: We will obtain screening labs and a CT scan of the abdomen, giving fluid and morphine. I do not feel that the hernia is strangulated or incarcerated, I can reduce it. Unclear how long it remained trapped within the abdominal wall. I have independently reviewed the following tests: Labs: No leukocytosis, not anemic, no electrolyte abnormality CT abdomen and pelvis, indings: No consolidation or effusion. The liver, gallbladder, spleen, pancreas, kidneys and adrenal glands are normal in appearance. No bowel obstruction, pneumoperitoneum, or pneumatosis. There is haziness within the small bowel mesentery. Nonenlarged mesenteric lymph nodes noted. Small fat containing supraumbilical hernia. No inguinal, pelvic or retroperitoneal lymphadenopathy. Pelvic contents unremarkable. Normal appendix. The bones are intact. IMPRESSION: 1. No small bowel obstruction. 2. Small fat containing supraumbilical hernia. 3. Haziness within the small bowel mesentery, a nonspecific finding that can be incidental as well as be associated with multiple medical etiologies. No significant adenopathy. Lab Data 08/08/24 21:51 08/08/24 21:51 Labs: Lab Results 08/08/24 Range/Units 21:51 WBC 8.1 (4.8-10.8) X10*3/uL RBC 5.03 (4.60-5.80) X10*6/uL Hgb 14.4 (14.0-18.0) g/dl Hct 40.3 L (42.0-52.0) % MCV 80.1 (80.0-98.0) fL MCH 28.6 (27.0-33.0) pg MCHC 35.7 (31.0-36.0) g/dl RDW 12.8 (11.0-16.0) % Plt Count 247 (160-400) X10*3/uL MPV 10.8 (9.4-12.4) fL Immature Gran % (Auto) 0.9 H (0.0-0.4) % Neut % (Auto) 59.7 (45-73) % Lymph % (Auto) 29.6 (20-40) % [place] % (Auto) 8.3 (2-11) % Eos % (Auto) 1.0 (0-4) % Baso % (Auto) 0.5 (0-2) % Lymph # (Auto) 2.4 (1.2-4.9) X10*3/uL [place] # (Auto) 0.7 (0.1-1.2) X10*3/uL Eos # (Auto) 0.1 (0.0-0.4) X10*3/uL Baso # (Auto) 0.0 (0.0-0.2) X10*3/uL Abs Immat Gran (auto) 0.07 H (0.00-0.03) X10*3/uL Absolute Neuts (auto) 4.8 (2.0-8.3) x10*3/uL Absolute Nucleated RBC 0.000 (0.0-0.012) X10*3/uL Nucleated RBC % (auto) 0.0 (0.0-0.2) /100WBC Sodium 143 (135-145) mmol/L Potassium 4.0 (3.3-5.1) mmol/L Chloride 109 H (96-108) mmol/L Carbon Dioxide 24 (22-29) mmol/L Anion Gap 14 (12-20) BUN 16 (9-16) mg/dL Creatinine 1.08 (0.5-1.4) mg/dL Estim Creat Clear Calc 120.2 Estimated GFR > 60 Random Glucose 91 (60-115) mg/dL Calcium 8.9 (8.4-10.2) mg/dL Magnesium 2.0 (1.6-2.6) mg/dL Total Bilirubin 0.5 (0.0-1.0) mg/dL AST 28 (5-37) U/L ALT 16 (0-40) U/L Alkaline Phosphatase 65 (39-117) U/L Total Protein 7.1 (6.5-8.0) g/dL Albumin 4.0 (3.5-5.0) g/dL Discharge Plan Discharge Clinical Impression: Supraumbilical hernia Patient Disposition: Home, Self-Care Instructions: Ventral Hernia (ED) Additional Instructions: You had no lab abnormalities in the CT scan of the abdomen was normal, the hernia is not trapped within the abdominal wall. You do not have an obstruction. You need to reach out to your surgeon, Dr. Daíz, to have further discussion about the elective repair of your hernia. In the meantime, avoid heavy lifting, as this can cause the bowel to be trapped within the abdominal wall. Call tomorrow to make an appointment. Prescriptions: No Action miscellaneous medical supply Misc 1 ea miscellaneous DAILY 99 Days Qty: 4 0RF miscellaneous medical supply Misc See Rx Instructions miscellaneous .COMPLEX Qty: 1 0RF Rx Instructions: Prosthetic foot shell and Flexible protective cover. clotrimazole-betamethasone 1-0.05 % cream 1 appl topical BID 30 Days Qty: 45 0RF (DME) Prosthesis, leg Misc See Rx Instructions .Route Qty: 1 0RF Rx Instructions: As directed diazepam 2 mg tablet 2 mg PO BID PRN (Reason: anxiety) 1 Days Qty: 2 0RF Rx Instructions: Take medication after arrival at office (DME) Prosthesis skin See Rx Instructions .Route .MEDSUPPLY Qty: 1 0RF Rx Instructions: As directed Referrals: Tom Díaz MD [Physician] - (Known ventral wall hernia, seen in the ED overnight, no obstruction, it was reducible, CT scan obtained) Stand Alone Forms: Work/School Release Print Language: Citizen Of [place]
--- NOTE | 2024-08-08 21:32 | PC.NURSE ---
CT staff @ bedside administering PO contrast. CT scan scheduled for 2329. Pt resting comfortably in bed, care ongoing.
[2024-08-08] MEDS: Morphine Sulfate 10 MG/ML CARTRIDGE IVPUSH (21:52)
[2024-08-08] MEDS: ondansetron HCL 4 MG/2 ML VIAL IVPUSH (21:52)
[2024-08-08] MEDS: 0.9 % Sodium Chloride 1,000 ML 999 ML IV (21:52)
[2024-08-08 22:17] LABS: MANUAL DIFF FLAG NO
[2024-08-08 22:18] LABS: Basophils Percent Auto 0.5 % (0-2); Eosinophils Absolute Auto 0.1 X10*3/uL (0.0-0.4); Hematocrit 40.3 % (42.0-52.0); Hemoglobin 14.4 g/dl (14.0-18.0); Imm Gran Abs Auto 0.07 X10*3/uL (0.00-0.03); Imm Gran Pct Auto 0.9 % (0.0-0.4); Lymphocytes Absolute Auto 2.4 X10*3/uL (1.2-4.9); Lymphocytes Percent Auto 29.6 % (20-40); Mean Corpuscular HGB Conc 35.7 g/dl (31.0-36.0); Mean Corpuscular Hemoglobin 28.6 pg (27.0-33.0); Mean Corpuscular Volume 80.1 fL (80.0-98.0); Mean Platelet Volume 10.8 fL (9.4-12.4); Monocytes Absolute Auto 0.7 X10*3/uL (0.1-1.2); Monocytes Percent Auto 8.3 % (2-11); Neutrophils Absolute Auto 4.8 x10*3/uL (2.0-8.3); Neutrophils Percent Auto 59.7 % (45-73); Platelet Count 247 X10*3/uL (160-400); Red Blood Count 5.03 X10*6/uL (4.60-5.80); Red Cell Distribution Width 12.8 % (11.0-16.0); White Blood Count 8.1 X10*3/uL (4.8-10.8)
[2024-08-08 22:33] LABS: Alanine Aminotransferase 16 U/L (0-40); Alkaline Phosphatase 65 U/L (39-117); Anion Gap 14 (12-20); Aspartate Amino Transferase 28 U/L (5-37); Bilirubin Total 0.5 mg/dL (0.0-1.0); Blood Urea Nitrogen 16 mg/dL (9-16); Calcium 8.9 mg/dL (8.4-10.2); Carbon Dioxide 24 mmol/L (22-29); Chloride 109 mmol/L (96-108); Creatinine Clr Calc Pharmacy 120.2; Estimated Glomerular Filt Rate > 60; Glucose Random 91 mg/dL (60-115); Sodium 143 mmol/L (135-145); Total Protein 7.1 g/dL (6.5-8.0)
[2024-08-08] MEDS: Diatrizoate Meglumine, Sodium 30 ML SOLUTION PO (23:34)
[2024-08-08] MEDS: iohexoL 350 MG/ML 100 ML INFUS..BTL IV (23:35)
[2024-08-09 00:10] VITALS: BP 98/49; PULSE 67; RESP 16; TEMP 36.5; O2SAT 95
[2024-08-09 01:50] VITALS: BP 123/74; PULSE 66; RESP 20; TEMP 36.5; O2SAT 97
== END 2024-08-09 01:51 | disposition home or self-care (01) ==
PROVIDERS: Physician Assistant Medical; Emergency Provider Emergency Medicine; PCP Physician Assistant
DX: K43.9 Ventral hernia without obstruction or gangrene (principal); I10 Essential (primary) hypertension; E66.01 Morbid (severe) obesity due to excess calories; Z68.43 Body mass index [BMI] 50.0-59.9, adult
CPT/HCPCS: 36415; 74177; 80053; 83735; 85025; 96361; 96374; 96375; 99284; J2270; J2405; Q9967

== ENCOUNTER → 2024-08-08 21:20 | Outpatient (BNV) | payer OTHER, SELFPAY | PROVIDERS: PCP Physician Assistant; Visit Provider Radiology Diagnostic Radiology | DX: K42.9 Umbilical hernia without obstruction or gangrene (principal) | CPT/HCPCS: 74177 ==

== ENCOUNTER 2024-08-22 10:56 | Outpatient (AMB) | payer OTHER, SELFPAY ==
--- NOTE | 2024-08-22 11:03 | MHC.OFFVIS ---
Vital Signs 08/22/24 11:05 Height 5 ft 6 in Weight 311 lb 11.738 oz BMI 50.3 BP 124/64 Blood Pressure Location Rt brachial Position Sitting Pulse 80 Pulse Source Pulse Oximeter Pulse Oximetry (%) 95 Oxygen Delivery Method Room Air Intake Visit Reasons: ventral hernia Intake Note: Patient is seen in office for ER follow up visit, following ventral hernia. Pt c/o: occasional pain in his abdomen. CT/ER:08/09/24 Accompanied by: Spouse Allergies No Known Allergies Allergy (Verified 08/22/24 11:07) Medication List - Last Reconciled 08/22/24 by Arron Hernandez MD miscellaneous medical supply 1 ea miscellaneous DAILY 99 days miscellaneous medical supply Prosthetic foot shell and Flexible protective cover. [Prosthesis skin As directed] Prosthesis, leg As directed HPI Comments Details: 43-year-old male patient presenting for evaluation of a abdominal wall hernia. He feels the hernias been present for approximately 2-3 years but recently has become more painful and more visible through the clothing. His job involves lifting on a daily basis and feels the hernias gradually developed over time. He denies any nausea, vomiting, diarrhea or constipation. He has no previous history of hernias or hernia surgery. He denies any previous surgery in this location. COUNTS INCLUDE 234 BEDS AT THE [facility] Medical History Supraumbilical hernia Morbid obesity Surgical History No pertinent past surgical history Family History Mother Diabetes High blood pressure Father Prostate cancer Social History Housing: Apartment Alcohol intake: never Patient Tobacco Use Status: Never used Tobacco e-Cigarette/Vaping Use: Never Used Second Hand Smoke Exposure: No service: No Current occupational status: employed Current occupation: [employer] Current occupational exposures/hazards: No Cognitive needs: Yes (prostetic leg) Hearing needs: No Vision needs: No Review of Systems Const All systems reviewed & are unremarkable except as noted in HPI and below Physical Exam Vital Signs: Last Vital Signs Pulse 80 08/22/24 11:05 BP 124/64 08/22/24 11:05 Pulse Ox 95 08/22/24 11:05 Oxygen Delivery Method Room Air 08/22/24 11:05 BMI result Body Mass Index 50.3 Const General: cooperative and no acute distress Nutritional Appearance: well nourished Orientation/consciousness: patient oriented x3 Limitations: no limitations HEENT Head: Yes normocephalic and Yes atraumatic Ears: hearing grossly normal bilaterally Resp Effort & Inspection: normal respiratory effort, no audible wheezes, no cough and no respiratory distress Cardio Jugular venous distension: no JVD GI Inspection: Yes normal to inspection Palpation (GI): Soft to palpation, nontender, no guarding, not rigid and Hernia present (Reducible ventral hernia, 4 cm diameter, increases with Valsalva maneuvers) Abdomen image:  1. 4 cm ventral hernia, reducible hernia, nontender to palpation. Skin Other: Warm, dry, no rash Neuro General: patient oriented x3 Extrem General: Yes no clubbing, cyanosis or edema Assessment & Plan Assessment & Plan (1) Supraumbilical hernia: Code(s): K43.9 - Ventral hernia without obstruction or gangrene Category: Medical Plan 43-year-old male patient presenting with a ventral hernia which developed over the last several years. He denies any nausea, vomiting, fever or chills. On examination he is found to have a 4 cm round reducible ventral hernia which increases in size with Valsalva but does reduce with light pressure. I recommended repair of this ventral hernia with mesh and after discussion of the procedure, risks, and alternatives, he consents to the surgery. Coding Level of Care Code New Pt Level 4 (92675) Diagnoses Supraumbilical hernia K43.9
[2024-08-22 11:05] VITALS: BP 124/64; PULSE 80; O2SAT 95; BMI 50.3
== END 2024-08-22 11:19 | disposition home or self-care (01) ==
LOC: HO.HGS 10:57
PROVIDERS: PCP Physician Assistant
DX: K43.9 Ventral hernia without obstruction or gangrene (principal)
CPT/HCPCS: 99204

== ENCOUNTER 2024-08-31 06:57 | Day surgery (SDC) | payer OTHER, SELFPAY ==
[2024-08-29 08:04] VITALS: BMI 50.2
--- NOTE | 2024-08-30 11:01 | HO.ANESPROP2 ---
Documented by User: Shae Vu NP 08/30/24 11:03 HPI - Anesthesia Eval Consult details Narrative: 43yo M for Hernia Ventral Reducible with mesh BMI 50 PMFSH Active Problems Active Problems: All Active Problems Supraumbilical hernia (Acute) Morbid obesity (Acute) Class 3 obesity (Acute) Umbilical hernia (Acute) Anxiety about health (Acute) Annual physical exam (Acute) Fungal dermatitis (Acute) Vasectomy evaluation (Acute) Neurofibromatosis (Acute) HTN (hypertension) (Acute) Screening for hypothyroidism (Acute) Screening for hypercholesterolemia (Acute) Screening for diabetes mellitus (DM) (Acute) Witnessed apneic spells (Acute) Skin nodule (Acute) Obese (Acute) Left ear pain (Acute) History of right below knee amputation (Acute) Past Medical History Medical History Supraumbilical hernia Morbid obesity Family History Family History Mother Diabetes High blood pressure Father Prostate cancer Surgical History Surgical History Hx of right BKA Social History Social History Housing: Apartment Alcohol intake: never Patient Tobacco Use Status: Never used Tobacco e-Cigarette/Vaping Use: Never Used Second Hand Smoke Exposure: No service: No Current occupational status: employed Current occupation: [employer] Current occupational exposures/hazards: No Cognitive needs: Yes (prostetic leg) Hearing needs: No Vision needs: No Meds Allergies Allergy/AdvReac Type Severity Reaction Status Date / Time No Known Allergies Allergy Verified 08/22/24 11:07 Exam Height,Weight and Vital Signs: Height 5 ft 6 in Weight 141.067 kg Assessment and Plan Assessment Anesthesia Assessment: Chart Reviewed Documented by User: Sinna Moore MD 08/31/24 08:42 PMFSH Past Medical History Medical History Supraumbilical hernia Morbid obesity Functional capacity: independent ambulation Family History Family History Mother Diabetes High blood pressure Father Prostate cancer Family history of problems with anesthesia: No Surgical History Surgical History Hx of right BKA History of Problems with Anesthesia: No Social History Social History Housing: Apartment Alcohol intake: never Patient Tobacco Use Status: Never used Tobacco e-Cigarette/Vaping Use: Never Used Second Hand Smoke Exposure: No service: No Current occupational status: employed Current occupation: [employer] Current occupational exposures/hazards: No Cognitive needs: Yes (prostetic leg) Hearing needs: No Vision needs: No Meds Allergies Allergy/AdvReac Type Severity Reaction Status Date / Time No Known Allergies Allergy Verified 08/22/24 11:07 Exam Exam Date and Time: 08/31/2024 Airway TM Dist: >3cm Neck ROM: Full Loose/Missing/Broken Teeth: No (normal dentition) Heart: RRR Lungs: CTA Other: normal orientation and cognition Assessment and Plan Final Anesthetic Review Family History of Problems with Anesthesia: No History of Problems with Anesthesia: No NPO: Yes ASA Class: III Final Preanesthetic Review: No Changes in Pt Med Stat, Meds/Allgs Chart Reviewed, Consent Obtained/Reviewed and Anes Risks/Benef Reviewed Patient Risk: Intermediate Procedure Risk: Low Anesthetic Plan Anesthetic Plan: GA Disposition: Standard PACU
[2024-08-31 07:49] VITALS: BMI 50.5
[2024-08-31 07:59] VITALS: BP 143/90; PULSE 79; RESP 16; TEMP 36.7; O2SAT 97
[2024-08-31] MEDS: Lactated Ringers 1,000 ML 100 ML IVCONT (08:13)
--- NOTE | 2024-08-31 08:32 | MHC.SHP ---
Pre-Procedural Eval Section A - 24 Hr Update-Section A only Date of Service: 08/31/24 The patient is an INPATIENT: No Changes since office visit: Yes Patient answered all questions; No Cold of Flu in the past 2 weeks, No New Medical Problems and No Changes in Medication The patient has been examined within 24 hours of the surgical procedure. The History & Physical has been completed within 30 days and I have reviewed it.: Yes Section B - Complete if H&P > 30 days Chief Complaint: Ventral hernia without obstruction or gangrene Allergies: Allergies Allergy/AdvReac Type Severity Reaction Status Date / Time No Known Allergies Allergy Verified 08/22/24 11:07 Plan Diagnosis/Plan: Unchanged I have reviewed the history and physical and performed a pertinent physical examination on my patient. No changes have occurred unless specified. Time Spent With Patient Time: Total time managing care of this patient today ____ minutes.
--- NOTE | 2024-08-31 09:43 | P.OP_ITS ---
Operative Note Operative Note Date of Service: 08/31/24 Narrative: Preoperative diagnosis: Ventral hernia, reducible, 4 cm Postoperative diagnosis: Same Procedure: Repair of reducible ventral hernia with mesh Surgeon: Arron Hernandez MD Color Artist: Nasrin Schaeffer PA-C; Kyle MCNAMARA Anesthesia: General endotracheal Indications for procedure: 43-year-old male patient presenting with complaints of a palpable lump in the upper abdomen which is increasing in size and causing discomfort. On examination the patient is found to have a palpable hernia several cm above the umbilicus measuring approximately 4 cm in diameter which increases in size with Valsalva maneuvers but is reducible with light pressure. Operative findings: Ventral hernia, 4 cm repaired with an 8 cm round Ventralex mesh Specimen: None Estimated blood loss: Less than 2 mL Complications: None Procedure details: Patient was brought to the OR and placed in a supine position. After administering general anesthesia the patient's abdomen was prepped with ChloraPrep and draped in a sterile fashion. A surgical time-out was called the consent confirmed. Patient received preoperative antibiotics and Venodyne boots were in place. Local anesthesia was then infiltrated in the midline just above the umbilicus. A midline incision was then made with a scalpel directly over the palpable lump and carried out through subcutaneous tissue up to the hernia sac. The hernia sac was then dissected circumferentially down to the fascial edge. The fascial edge was then further defined using electrocautery. The hernia sac was then reduced below the fascia and a preperitoneal space further dissected. This was done with both electrocautery dissection and blunt dissection. An 8 cm round Ventralex mesh was then obtained. This was deployed within the preperitoneal space and secured in 4 quadrants using a 1 Tycron suture. The fascia was then closed over the mesh using [id number] 1 Tycron sutures incorporating the mesh in the closure. Prior to completely closing the fascia the wounds were irrigated with saline solution and suctioned dry. Approximately 6 mL of Zenrelef was instilled below the fascia for postoperative pain control. The remaining suture was then closed. Subcutaneous tissue and dermis were then reapproximated using interrupted 3-0 Polysorb sutures. Skin was closed using a running subcuticular 4-0 Polysorb suture. Steri-Strips, 4 x 4 gauze and Tegaderm were then applied. The patient tolerated the procedure well. Sponge, instrument, and needle counts reported as correct. The patient was transferred to PACU in stable condition.
[2024-08-31 10:03] VITALS: BP 124/87; PULSE 85; RESP 16; TEMP 36.6
[2024-08-31 10:05] VITALS: BP 123/77; PULSE 87; RESP 16; TEMP 36.6; O2SAT 94
[2024-08-31 10:10] VITALS: BP 131/78; PULSE 87; RESP 16; TEMP 36.6; O2SAT 94
[2024-08-31 10:15] VITALS: BP 131/78; PULSE 80; RESP 16; O2SAT 95
[2024-08-31 10:30] VITALS: BP 121/76; PULSE 80; RESP 16; TEMP 36.6; O2SAT 95
== END 2024-08-31 11:01 | disposition home or self-care (01) ==
PROVIDERS: PCP Physician Assistant; Visit Provider Surgery
PROC: (CPT 49593; principal; 2024-08-31 08:40)
DX: K43.9 Ventral hernia without obstruction or gangrene (principal); E66.01 Morbid (severe) obesity due to excess calories; Z68.43 Body mass index [BMI] 50.0-59.9, adult
CPT/HCPCS: 49593; C1781; C9088; J0330; J0690; J1171; J2003; J2405; J2704; J3010

== ENCOUNTER → 2024-08-31 06:57 | Outpatient (BNV) | payer OTHER, SELFPAY | PROVIDERS: PCP Physician Assistant; Visit Provider Surgery | DX: K43.2 Incisional hernia without obstruction or gangrene (principal) | CPT/HCPCS: 49593 ==

== ENCOUNTER 2024-09-12 13:54 | Outpatient (AMB) | payer OTHER, SELFPAY ==
--- NOTE | 2024-09-12 13:56 | A.OFFPC_ITS ---
Vital Signs 09/12/24 13:58 Height 5 ft 6 in Weight 308 lb 8 oz BMI 49.8 BP 120/68 Blood Pressure Location Lt brachial Position Sitting Pulse 80 Pulse Source Pulse Oximeter Temp 97.1 F Temp Source Temporal Artery Scan Pulse Oximetry (%) 97 Oxygen Delivery Method Room Air Intake Visit Reasons: discuss form/ follow up Intake Note: Patient is here today to discuss forms Immigration Specialist Required: Yes Immigration Specialist Language: Manager Management Name: Anglic (spouse) Information Interpreted: non-clinical & clinical (pt decline telemarketing supervisor service prefer spouse to translate) Automatic Data Processing Planner: Present Accompanied by: Spouse Allergies No Known Allergies Allergy (Verified 09/12/24 13:57) Tobacco use date assessed: 09/12/24 Dental Screening Dental Screen Date: 04/28/24 HPI discuss form/ follow up HPI Details Patient is a 44-year-old male here today for follow-up visit. Patient has a past medical history significant for obesity, right below-knee amputation, Today here to get arm few paperwork done, has a right below-knee amputation that has been evident since the . Needs justification that he is able to drive a vehicle. Otherwise over his left foot he has noted a dry scaly patches of skin that I am very itchy. Would like a cream for possible tinea pedis. Class 3 obesity: Discussed his obesity to which we tried GLP 1 though did not get covered by insurance. We have started phentermine he has been able to lose weight. Unfortunately phentermine had caused erectile dysfunction and he has stopped the medication. We did discuss perhaps going to weight management program though he is not interested in bariatric surgery. [facility] Medical History Supraumbilical hernia Morbid obesity Surgical History History of ventral hernia repair (08/31/24) Hx of right BKA Family History Mother Diabetes High blood pressure Father Prostate cancer Social History Housing: Apartment Alcohol intake: never Patient Tobacco Use Status: Never used Tobacco e-Cigarette/Vaping Use: Never Used Second Hand Smoke Exposure: No service: No Current occupational status: employed Current occupation: [employer] Current occupational exposures/hazards: No Cognitive needs: Yes (prostetic leg) Hearing needs: No Vision needs: No Questionnaire PHQ-9 Over the last 2 weeks, how often have you been bothered by any of the following problems? 1. Little interest or pleasure in doing things: not at all 2. Feeling down, depressed, or hopeless: not at all 3. Trouble falling or staying asleep, or sleeping too much: not at all 4. Feeling tired or having little energy: not at all 5. Poor appetite or overeating: not at all 6. Feeling bad about yourself - or that you are a failure or have let yourself or your family down: not at all 7. Trouble concentrating on things, such as reading the newspaper or watching television: not at all 8. Moving or speaking so slowly that other people could have noticed. Or the opposite - being so fidgety or restless that you have been moving around a lot more than usual: not at all 9. Thoughts that you would be better off or of hurting yourself in some way: not at all Total score: 0 Depression Screening Interpretation: Negative Depression Screening Done: Yes 81116 - PHQ-9 Billing: Yes Source: Developed by Drs. Diego Magaña, Destini Maddox, Bhavesh Rivera and colleagues, with an educational pk from [employer]. Thrive Questionnaire Date Thrive assessed: 09/12/24 I am a: Patient What is your living situation today?: I have a steady place to live Within the past 12 months, did the food you bought not last and you didn't have the money to get more?: Never true Within the past 12 months, did you worry whether your food would run out before you got money to buy more?: Never true Do you have trouble paying for medicines?: No Do you have trouble getting transportation to medical appointments?: No Do you have trouble paying your heating and electricity bill?: No Do you have trouble taking care of your child, family member or friend?: No Do you have trouble with day-to-day activities such as bathing, preparing meals, shopping, managing finances, etc.?: No Are you currently unemployed and looking for a job?: No Are you interested in more education?: No Please select the resources that you would like help with: None Currently or been in a relationship where the following occur: No concerns reported THRIVE Score: 0 AUDIT C Alcohol Use Questionnaire (AUDIT-C) 1. How often do you have a drink containing alcohol?: Never Total Score: 0 SIM-7 AMB Questionnaire SIM-7 Date SIM - 7 assessed: 09/12/24 Feeling nervous, anxious, or on edge: 0 = Not at all Not being able to stop or control worryin = Not at all Worrying too much about different things: 0 = Not at all Trouble relaxin = Not at all Being so restless that it is hard to sit still: 0 = Not at all Becoming easily annoyed or irritable: 0 = Not at all Feeling afraid as if something awful might happen: 0 = Not at all Total SIM-7 score (0-4 normal; 5-9 mild; 10-14 moderate; 15-21 severe): 0 Source: Developed by Drs. Diego Magaña, Destini Maddox, Bhavesh Rivera and colleagues, with an educational pk from [employer]. Review of Systems Const Denies headache(s) Eyes Denies loss of vision ENT Denies vertigo, Denies dizziness, Denies headache(s) and Denies sore throat Card Denies chest pain, Denies leg edema and Denies lightheadedness Resp Denies cough, Denies hemoptysis and Denies wheezing GI Denies abdominal pain, Denies melena, Denies constipation, Denies diarrhea and Denies vomiting Denies dysuria, Denies urinary frequency and Denies urinary urgency Musc Denies arthralgias, Denies joint swelling, Denies numbness and Denies tingling Neuro Denies Abnormal speech present, Denies behavioral changes, Denies vertigo, Denies dizziness, Denies headache(s), Denies loss of vision, Denies memory loss, Denies numbness and Denies tingling Psych Denies anxiety, Denies behavioral changes, Denies depression, Denies memory loss and Denies panic attacks Naveen/Lymph Denies easy bleeding and Denies easy bruising Aller/Immun Denies wheezing Physical exam (Primary Care) Vital Signs: Last Vital Signs Temp 97.1 F 09/12/24 13:58 Pulse 80 07/21/25 13:58 BP 120/68 09/12/24 13:58 Pulse Ox 97 09/12/24 13:58 Oxygen Delivery Method Room Air 09/12/24 13:58 BMI result Body Mass Index 49.8 Tobacco/Smoking Status: Tobacco use Status Tobacco use date assessed 09/12/24 09/12/24 14:03 Patient Tobacco Use Status Never used Tobacco 09/12/24 14:03 Tobacco use type 04/29/24 10:32 e-Cigarette/Vaping Use Never Used 09/12/24 14:03 PHQ-9: PHQ-9 Score PHQ-9: Total score 0 09/12/24 14:05 Depression Screening Interpretation: Negative Thrive Assessment: Date of Thrive Assessment Date Thrive assessed 09/12/24 09/12/24 14:03 Currently or been in a relationship where the following occur: No concerns reported Const General: healthy appearing, no acute distress, alert and awake Nutritional Appearance: well nourished Orientation/consciousness: oriented to person, oriented to place and oriented to time HENMT Ears: TM's normal bilaterally General nose exam: Normal nasal mucous membranes and turbinates present Eyes Conjunctivae: conjunctivae normal Sclerae: sclerae normal Pupils: Equal, round and reactive pupils present Neck Neck: Yes no lymphadenopathy and Yes no JVD Thyroid: Thyroid normal Carotids: no bruits Resp Effort & Inspection: normal respiratory effort and not tachypneic Auscultation: no crackles, no rales, no rhonchi and no wheezes Cardio Rate: regular rate Rhythm: regular rhythm Heart sounds: no murmurs and normal S1 and S2 GI Palpation (GI): Soft to palpation, nontender, no hepatomegaly and no splenomegaly Auscultation: normal bowel sounds Skin General skin exam: no rashes or lesions noted and dry skin Neuro General: oriented to person, oriented to place and oriented to time Cranial nerves: Yes Equal, round and reactive pupils present Speech: No Abnormal speech present Gait exam (Neuro): Normal gait present Motor exam (neuro): no tremor noted Extrem Right upper extremity: full ROM Left upper extremity: full ROM Right lower extremity: full ROM; no edema Left lower extremity: full ROM; no edema Psych Mental Status: mental status grossly normal Speech and movement: Normal speech and movement present Affect: normal affect Attitude: cooperative Thought process: Normal thought process present Coding Level of Care Code Est Pt Level 3 (18452) Diagnoses Tinea pedis of left foot B35.3 Laterality: left History of right below knee amputation Z89.511 Additional Codes PHQ-9 - 43604 - PHQ-9 Billing: Yes ([id number]) Assessment & Plan Assessment & Plan (1) Tinea pedis: Code(s): B35.3 - Tinea pedis Category: Medical Qualifiers: Laterality: left Qualified Code(s): B35.3 - Tinea pedis Plan: As per HPI patient skin manifestation consistent with a tinea pedis. Will supp ly patient with antifungal cream. (2) History of right below knee amputation: Code(s): Z89.511 - Acquired absence of right leg below knee Category: Surgical Plan: Use his prosthesis for his right below-knee amputation, he does need justification for the RMV that he is able to drive a vehicle.. Medications: New ciclopirox 0.77% (Ciclodan) 1 appl topical BID 30 grams 0RF 4 weeks B35.3 - Tinea pedis
[2024-09-12 13:58] VITALS: BP 120/68; PULSE 80; TEMP 36.2; O2SAT 97; BMI 49.8
== END 2024-09-12 14:16 | disposition home or self-care (01) ==
LOC: HO.HMCH 13:55
PROVIDERS: PCP Physician Assistant; Visit Provider Physician Assistant
DX: B35.3 Tinea pedis (principal); Z89.511 Acquired absence of right leg below knee

== ENCOUNTER → 2024-09-12 13:54 | Outpatient (BNVA) | payer OTHER, SELFPAY | PROVIDERS: PCP Physician Assistant; Visit Provider Physician Assistant | DX: E66.813 Obesity, class 3 (principal); B35.3 Tinea pedis; Z89.511 Acquired absence of right leg below knee; Z68.42 Body mass index [BMI] 45.0-49.9, adult | CPT/HCPCS: 96127 ==

== ENCOUNTER 2024-09-15 15:25 | Outpatient (AMB) | payer OTHER, SELFPAY ==
--- NOTE | 2024-09-15 15:26 | A.OFFVIS_ITS ---
Vital Signs 09/15/24 15:32 Height 5 ft 6 in Weight 317 lb BMI 51.2 BP 122/70 Blood Pressure Location Rt brachial Position Sitting Pulse 81 Intake Visit Reasons: s/p ventral hernia repair Intake Note: Patient here s/p repair of reducible ventral hernia with mesh. Patient c/o: reports incision healing well. No longer taking rx pain meds. Surgery: 08-31-2024 Security Operations Analyst Required: No Accompanied by: spouse Rylee Gilliam Allergies No Known Allergies Allergy (Verified 09/15/24 15:32) HPI HPI s/p ventral hernia repair: Details: Patient reports he is doing well. He did have some oozing from the incision site for the 1st day or 2 but this has since resolved. He denies any other discharge, redness from the incision site. He denies abdominal pain, fever, chills. His appetite and bowel function are at baseline. He has not been doing any heavy lifting he has had a work until October 03. [facility] Medical History Supraumbilical hernia Morbid obesity Surgical History History of ventral hernia repair (08/31/24) Hx of right BKA Family History Mother Diabetes High blood pressure Father Prostate cancer Social History Housing: Apartment Alcohol intake: never Patient Tobacco Use Status: Never used Tobacco e-Cigarette/Vaping Use: Never Used Second Hand Smoke Exposure: No service: No Current occupational status: employed Current occupation: [employer] Current occupational exposures/hazards: No Cognitive needs: Yes (prostetic leg) Hearing needs: No Vision needs: No Review of Systems Const All systems reviewed & are unremarkable except as noted in HPI and below Physical Exam Vital Signs: Last Vital Signs Pulse 81 09/15/24 15:32 BP 122/70 09/15/24 15:32 BMI result Body Mass Index 51.2 Const General: comfortable and no acute distress Orientation/consciousness: patient oriented x3 Resp Effort & Inspection: normal respiratory effort and able to speak in complete sentences GI Other: Protuberant abdomen Incision site appears to be healing well, fully closed there was no surrounding erythema, no discharge. It is nontender Inspection: No distended Palpation (GI): Soft to palpation, not firm, nontender, no guarding and not rigid Neuro General: patient oriented x3 Assessment & Plan Assessment & Plan (1) S/P repair of ventral hernia: Code(s): Z98.890 - Other specified postprocedural states; Z87.19 - Personal history of other diseases of the digestive system Category: Medical Plan 44-year-old male presenting to the office for 2 week follow up s/p ventral hernia repair. Patient is doing well, not having any pain. His bowel function and appetite are at baseline. The incision site is healing well, he did have some oozing in the 1st few days postop but this has since resolved. On exam his abdomen is soft and benign. I have no concern for infection at this time. We will continue with weight lifting restrictions, no heavy lifting greater than 15-20 lb for the next 2 weeks. I also recommended that he avoid submerging in baths or pools. Patient agrees to this. Patient will follow up in 2 weeks for routine one-month follow-up. He can call sooner with any concerns or questions Coding Level of Care Code Est Pt Level 3 (64849) Diagnoses S/P repair of ventral hernia Z98.890; Z87.19
[2024-09-15 15:32] VITALS: BP 122/70; PULSE 81; BMI 51.2
== END 2024-09-15 15:39 | disposition home or self-care (01) ==
LOC: HO.HGS 15:25
PROVIDERS: PCP Physician Assistant
DX: Z98.890 Other specified postprocedural states (principal); Z87.19 Personal history of other diseases of the digestive system
CPT/HCPCS: 99213

== ENCOUNTER 2024-09-29 11:28 | Outpatient (AMB) | payer OTHER, SELFPAY ==
[2024-09-29 11:33] VITALS: BP 131/83; PULSE 88; RESP 18; TEMP 37; O2SAT 96; BMI 50.2
--- NOTE | 2024-09-29 11:33 | MHC.OFFVIS ---
Vital Signs 09/29/24 11:33 Height 5 ft 6 in Weight 310 lb 13.628 oz BMI 50.2 BP 131/83 Blood Pressure Location Lt brachial Position Sitting Respiration 18 Pulse 88 Pulse Source Pulse Oximeter Temp 98.6 F Temp Source Oral Pulse Oximetry (%) 96 Oxygen Delivery Method Room Air Intake Visit Reasons: 2 week follow ups/p ventral hernia repair Receiving Checker Required: Yes Receiving Checker Services: Receiving Checker Offered & Declined Accompanied by: Spouse Allergies No Known Allergies Allergy (Verified 09/15/24 15:32) HPI HPI 2 week follow ups/p ventral hernia repair: Details: Doing well. Still has some pain at the incision site with bending over. Appetite and bowel function at baseline. Denies fevers chills. Worried about returning to work due to this intermittent pain, does not feel ready due to his jobs heavy lifting requirements [facility] Medical History Supraumbilical hernia Morbid obesity Surgical History History of ventral hernia repair (08/31/24) Hx of right BKA Family History Mother Diabetes High blood pressure Father Prostate cancer Social History Housing: Apartment Alcohol intake: never Patient Tobacco Use Status: Never used Tobacco e-Cigarette/Vaping Use: Never Used Second Hand Smoke Exposure: No service: No Current occupational status: employed Current occupation: [employer] Current occupational exposures/hazards: No Cognitive needs: Yes (prostetic leg) Hearing needs: No Vision needs: No Review of Systems Const All systems reviewed & are unremarkable except as noted in HPI and below GI Reports abdominal pain Physical Exam Vital Signs: BMI result Body Mass Index 50.2 Const General: comfortable and no acute distress Orientation/consciousness: patient oriented x3 Resp Effort & Inspection: normal respiratory effort and able to speak in complete sentences GI Other: Incision sites superior to the umbilicus. Healing well, intact, moderate induration deep to incision site, consistent with postsurgical changes. No fluid collection, no surrounding erythema. No recurrence on Valsalva Inspection: No distended Palpation (GI): Soft to palpation and Tenderness to palpation present (GI) (Incisional) Neuro General: patient oriented x3 Assessment & Plan Assessment & Plan (1) S/P repair of ventral hernia: Code(s): Z98.890 - Other specified postprocedural states; Z87.19 - Personal history of other diseases of the digestive system Category: Surgical Plan 44-year-old male presenting to the office for one-month follow up s/p ventral hernia repair. Patient is doing well, not having any pain. His bowel function and appetite are at baseline. The incision site is healing well, he did have some oozing in the 1st few days postop but this has since resolved. On exam his abdomen is soft and benign, remains tender around the incision site. Incision site appears to be healing well there is appropriate postsurgical changes deep the incision site, I am not concerned for infection at this time. We will continue with weight lifting restrictions, no heavy lifting greater than 15-20 lb for the next 2 weeks. Given his continued pain with ambulation, I would like to keep this patient out of work until October 17 due to the frequent heavy lifting that he encounters at work. I recommended that when he does resume activity that he should start slowly work back to his baseline. Patient agrees to this. He can follow up as needed with any concerns or questions Coding Level of Care Code Est Pt Level 3 (56167) Diagnoses S/P repair of ventral hernia Z98.890; Z87.19
== END 2024-09-29 11:55 | disposition home or self-care (01) ==
LOC: HO.HGS 11:29
PROVIDERS: PCP Physician Assistant
DX: Z98.890 Other specified postprocedural states (principal); Z87.19 Personal history of other diseases of the digestive system
CPT/HCPCS: 99213

== ENCOUNTER 2024-10-12 09:43 | Outpatient (REF) | payer OTHER, SELFPAY ==
[2024-10-12 10:44] LABS: Hematocrit 43.3 % (42.0-52.0); Hemoglobin 15.6 g/dl (14.0-18.0); Mean Corpuscular HGB Conc 36.0 g/dl (31.0-36.0); Mean Corpuscular Hemoglobin 29.4 pg (27.0-33.0); Mean Corpuscular Volume 81.5 fL (80.0-98.0); NRBC Abs Auto 0.000 X10*3/uL (0.0-0.012); NRBC Pct Auto 0.0 /100WBC (0.0-0.2); Platelet Count 249 X10*3/uL (160-400); Red Blood Count 5.31 X10*6/uL (4.60-5.80); White Blood Count 5.6 X10*3/uL (4.8-10.8)
[2024-10-12 11:19] LABS: Alanine Aminotransferase 25 U/L (0-40); Albumin Level 4.2 g/dL (3.5-5.0); Alkaline Phosphatase 81 U/L (39-117); Anion Gap 13 (12-20); Aspartate Amino Transferase 26 U/L (5-37); Blood Urea Nitrogen 14 mg/dL (9-16); Calcium 8.9 mg/dL (8.4-10.2); Carbon Dioxide 25 mmol/L (22-29); Chloride 106 mmol/L (96-108); Estimated Glomerular Filt Rate > 60; Potassium 3.5 mmol/L (3.3-5.1); Sodium 140 mmol/L (135-145); Total Protein 7.6 g/dL (6.5-8.0)
[2024-10-12 11:59] LABS: Microalbum/Creatinine Ratio Ur 9.5 ug/mg cr (<30)
== END 2024-10-12 09:44 | disposition home or self-care (01) ==
LOC: HO.LAB 09:43
PROVIDERS: PCP Physician Assistant; Visit Provider Physician Assistant
DX: I10 Essential (primary) hypertension (principal)
CPT/HCPCS: 36415; 80053; 82043; 82570; 85027

== ENCOUNTER 2024-10-13 10:13 | Outpatient (AMB) | payer OTHER, SELFPAY ==
[2024-10-13 10:21] VITALS: BP 134/78; PULSE 99; TEMP 36.2; O2SAT 97; BMI 48.7
--- NOTE | 2024-10-13 10:21 | MHC.PC.OV ---
Vital Signs 10/13/24 10:21 Height 5 ft 6 in Weight 302 lb BMI 48.7 BP 134/78 Blood Pressure Location Lt brachial Position Sitting Pulse 99 Pulse Source Pulse Oximeter Temp 97.1 F Temp Source Temporal Artery Scan Pulse Oximetry (%) 97 Oxygen Delivery Method Room Air Intake Visit Reasons: Annual Exam Accompanied by: Spouse Allergies No Known Allergies Allergy (Verified 10/13/24 10:27) Medication List - Last Reconciled 10/13/24 by Teto Silva PA-C ciclopirox 0.77% (Ciclodan) 1 appl topical BID 4 weeks miscellaneous medical supply 1 ea miscellaneous DAILY 99 days miscellaneous medical supply Prosthetic foot shell and Flexible protective cover. [Prosthesis skin As directed] Prosthesis, leg As directed Tobacco use date assessed: 10/13/24 Dental Screening Dental Screen Date: 10/13/24 Did you have a dental visit in the last 12 months?: Yes Did you have a dental problem in the last 6 months where you did not have access to dental care?: No Was dental information given to patient?: Patient has dentist HPI Annual Exam HPI Details Patient is a 44-year-old male here today for an annual physical. Patient has a past medical history significant for obesity, right below-knee amputation, Right below-knee amputatee: Today here to get arm few paperwork done, has a right below-knee amputation that has been evident since the . Needs justification that he is able to drive a vehicle. [facility] is requesting patient be evaluated at [facility] for his below-knee amputation in readiness to drive a motor vehicle Class 3 obesity: Has been able to lose a few lb since last office visit. Discussed his obesity to which we tried GLP 1 though did not get covered by insurance. Phentermine 1 somewhat effect of on losing weight. Unfortunately phentermine had caused erectile dysfunction and he has stopped the medication. We did discuss perhaps going to weight management program though he is not interested in bariatric surgery. Vaccines: Up-to-date with tetanus, COVID vaccine, declines flu vaccine Laboratory Tests 08/08/24 10/12/24 10/12/24 21:51 09:49 09:54 RBC 5.31 Hgb 14.4 Creatinine 1.08 1.09 Fasting Glucose 83 AST 26 Urine Microalbumin 29.0 [facility] Medical History (Updated 10/13/24 @ 10:44 by Teto Silva PA-C) Supraumbilical hernia Surgical History History of ventral hernia repair (08/31/24) Hx of right BKA Family History Mother Diabetes High blood pressure Father Prostate cancer Social History Housing: Apartment Alcohol intake: never Patient Tobacco Use Status: Never used Tobacco e-Cigarette/Vaping Use: Never Used Second Hand Smoke Exposure: No service: No Current occupational status: employed Current occupation: [employer] Current occupational exposures/hazards: No Cognitive needs: Yes (prostetic leg) Hearing needs: No Vision needs: No Questionnaire PHQ-9 Over the last 2 weeks, how often have you been bothered by any of the following problems? 1. Little interest or pleasure in doing things: not at all 2. Feeling down, depressed, or hopeless: not at all 3. Trouble falling or staying asleep, or sleeping too much: not at all 4. Feeling tired or having little energy: not at all 5. Poor appetite or overeating: not at all 6. Feeling bad about yourself - or that you are a failure or have let yourself or your family down: not at all 7. Trouble concentrating on things, such as reading the newspaper or watching television: not at all 8. Moving or speaking so slowly that other people could have noticed. Or the opposite - being so fidgety or restless that you have been moving around a lot more than usual: not at all 9. Thoughts that you would be better off or of hurting yourself in some way: not at all Total score: 0 Depression Screening Interpretation: Negative Depression Screening Done: Yes 84926 - PHQ-9 Billing: Yes Source: Developed by Drs. Diego Magaña, Destini Maddox, Bhavesh Rivera and colleagues, with an educational pk from [employer]. Thrive Questionnaire Date Thrive assessed: 09/12/24 I am a: Patient What is your living situation today?: I have a steady place to live Within the past 12 months, did the food you bought not last and you didn't have the money to get more?: Never true Within the past 12 months, did you worry whether your food would run out before you got money to buy more?: Never true Do you have trouble paying for medicines?: No Do you have trouble getting transportation to medical appointments?: No Do you have trouble paying your heating and electricity bill?: No Do you have trouble taking care of your child, family member or friend?: No Do you have trouble with day-to-day activities such as bathing, preparing meals, shopping, managing finances, etc.?: No Are you currently unemployed and looking for a job?: No Are you interested in more education?: No Please select the resources that you would like help with: None Currently or been in a relationship where the following occur: No concerns reported THRIVE Score: 0 AUDIT C Alcohol Use Questionnaire (AUDIT-C) 1. How often do you have a drink containing alcohol?: Never 3. How often do you have six or more drinks on one occasion?: Never Total Score: 0 SIM-7 AMB Questionnaire SIM-7 Date SIM - 7 assessed: 09/12/24 Feeling nervous, anxious, or on edge: 0 = Not at all Not being able to stop or control worryin = Not at all Worrying too much about different things: 0 = Not at all Trouble relaxin = Not at all Being so restless that it is hard to sit still: 0 = Not at all Becoming easily annoyed or irritable: 0 = Not at all Feeling afraid as if something awful might happen: 0 = Not at all Total SIM-7 score (0-4 normal; 5-9 mild; 10-14 moderate; 15-21 severe): 0 Source: Developed by Drs. Diego Magaña, Destini Maddox, Bhavesh Rivera and colleagues, with an educational pk from [employer]. SIM-7 Assessment Billing SIM-7 Assessment Tool: SIM-7 Assessment 03192 Review of Systems Const Denies body aches, Denies chills, Denies excessive sweating, Denies fatigue, Denies fever(s) and Denies headache(s) Eyes Denies blurry vision ENT Denies dysphagia, Denies vertigo, Denies dizziness, Denies headache(s), Denies hearing loss and Denies tinnitus Card Denies chest pain, Denies chest pain with activity, Denies syncope, Denies irregular heart rhythm and Denies dyspnea Resp Denies chest congestion, Denies cough, Denies hemoptysis, Denies dyspnea and Denies wheezing GI Denies abdominal pain, Denies melena, Denies hematochezia, Denies coffee ground emesis, Denies dysphagia, Denies diarrhea, Denies nausea and Denies vomiting Denies difficulty urinating, Denies dysuria, Denies urinary frequency, Denies urinary hesitancy and Denies urinary urgency Musc Denies arthralgias, Denies limited range of motion, Denies muscle cramps and Denies muscle weakness Skin/Breast Denies rash and Denies skin ulcer Neuro Denies Abnormal speech present, Denies confusion, Denies vertigo, Denies dizziness, Denies syncope, Denies headache(s), Denies memory loss and Denies seizure-like activity Psych Denies anxiety, Denies confusion, Denies depression, Denies memory loss, Denies panic attacks and Denies paranoia Endo Denies excessive sweating, Denies fatigue, Denies flushing, Denies polydipsia and Denies polyuria Aller/Immun Denies wheezing Physical exam (Primary Care) Vital Signs: Last Vital Signs Temp 97.1 F 10/13/24 10:21 Pulse 99 10/13/24 10:21 BP 134/78 10/13/24 10:21 Pulse Ox 97 10/13/24 10:21 Oxygen Delivery Method Room Air 10/13/24 10:21 BMI result Body Mass Index 48.7 BMI Assessment/Plan discussion: High BMI High, discussed plan: lifestyle, weight reduction, dietary and physical activity Tobacco/Smoking Status: Tobacco use Status Tobacco use date assessed 10/13/24 10/13/24 10:24 Patient Tobacco Use Status Never used Tobacco 10/13/24 10:24 Tobacco use type 04/29/24 10:32 e-Cigarette/Vaping Use Never Used 10/13/24 10:24 PHQ-9: PHQ-9 Score PHQ-9: Total score 0 10/13/24 10:24 Depression Screening Interpretation: Negative Thrive Assessment: Date of Thrive Assessment Date Thrive assessed 09/12/24 10/13/24 10:24 Currently or been in a relationship where the following occur: No concerns reported Const General: cooperative, comfortable, no acute distress, alert and awake; No confusion Orientation/consciousness: oriented to person, oriented to place, patient oriented x3 and No confusion HENMT Head: Yes normocephalic Ears: external ears normal and TM's normal bilaterally Face and sinus: No sinus tenderness Mouth: Normal oral and palatal mucosa present and tongue normal Teeth and gingiva: dentition normal and gingiva normal Throat: Yes posterior oropharynx normal, Yes tonsils normal and Yes uvula midline Eyes Conjunctivae: conjunctivae normal Sclerae: sclerae normal Pupils: Equal, round and reactive pupils present EOM: EOMs intact bilaterally Direct Ophthalmoscopy: No no photophobia Neck Neck: Yes no lymphadenopathy, No tender and Yes no JVD Thyroid: Thyroid normal Carotids: no bruits Chest Chest palpation & inspection: no tenderness Resp Effort & Inspection: normal respiratory effort, no audible wheezes, not labored and no stridor Auscultation: no crackles, no rales, no rhonchi and no wheezes Cardio Jugular venous distension: no JVD Rate: regular rate, not bradycardic and not tachycardic Rhythm: regular rhythm Bruits: no carotid bruits Peripheral pulses: Peripheral pulses 2+ throughout GI Inspection: Yes normal to inspection, No abdominal wall ecchymosis and No visible herniation Palpation (GI): Soft to palpation, nontender, no guarding, not rigid and No hepatosplenomegaly present Auscultation: normoactive bowel sounds General: Yes no CVA tenderness Back/Spine/Pelvis Back: no CVA tenderness and No back tenderness Cervical Spine: cervical ROM normal Thoracic/Lumbar Spine: thoracic and lumbar spine normal to inspection, straight leg raise negative bilaterally, No thoraco-lumbar ROM limited and No lumbar spinal tenderness Skin Lesions: no lesions Rashes: no rashes Wounds: no wounds Neuro General: oriented to person, oriented to place, patient oriented x3, CN's II-XI intact bilaterally and No confusion Cranial nerves: Yes Equal, round and reactive pupils present and Yes Normal accommodation reflex present Cognition (Neuro): normal cognition Speech: No Abnormal speech present Gait exam (Neuro): Normal gait present Motor exam (neuro): 5/5 motor strength present throughout Extrem Other: NOTED RIGHT BELOW-KNEE AMPUTATION Right upper extremity: full ROM; no cyanosis Left upper extremity: full ROM; no cyanosis Right lower extremity: no edema Left lower extremity: no edema Psych Appearance: grossly normal Mental Status: mental status grossly normal Affect: normal affect Attitude: cooperative Thought process: Normal thought process present Coding Level of Care Code Est Pt Prev Care 40-64y(65204) Diagnoses Annual physical exam Z00.00 Tinea pedis of left foot B35.3 Laterality: left History of right below knee amputation Z89.511 Class 3 obesity E66.813 Additional Codes PHQ-9 - 63753 - PHQ-9 Billing: Yes ([id number]) SIM-7 Assessment Billing - SIM-7 Assessment Tool: SIM-7 Assessment [id number] ([id number]) Assessment & Plan Assessment & Plan (1) Annual physical exam: Code(s): Z00.00 - Encounter for general adult medical examination without abnormal findings Category: Medical Plan: As per HPI (2) Tinea pedis: Code(s): B35.3 - Tinea pedis Category: Medical Qualifiers: Laterality: left Qualified Code(s): B35.3 - Tinea pedis Plan: A has been using antifungal cream on area foot thought to be tinea pedis though has not been effective. Interested in dermatology referral for evaluation and possible biopsy of skin rash. (3) History of right below knee amputation: Code(s): Z89.511 - Acquired absence of right leg below knee Category: Surgical Plan: Patient has a history of below right knee amputation, needed [facility] paperwork to medically justify his ability to drive though they are asking for physical rehab evaluation for motor vehicle use rediness. Referral to Physical rehab placed (4) Class 3 obesity: Code(s): E66.813 - Obesity, class 3 Category: Medical Plan: Patient does understand his BMI is over 40 and will continue working on being more physically active and adapting to better eating habits to reduce his weight. Orders: Orders PT Evaluation and Treatment Today Z89.511 - Acquired absence of right leg below knee Referrals Physical Medicine and Rehabilitation Referral Z89.511 - Acquired absence of right leg below knee
== END 2024-10-13 10:40 | disposition home or self-care (01) ==
LOC: HO.HMCH 10:14
PROVIDERS: PCP Physician Assistant; Visit Provider Physician Assistant
DX: Z00.00 Encounter for general adult medical examination without abnormal findings (principal); Z89.511 Acquired absence of right leg below knee; E66.813 Obesity, class 3; Z68.42 Body mass index [BMI] 45.0-49.9, adult; B35.3 Tinea pedis

== ENCOUNTER → 2024-10-13 10:13 | Outpatient (BNVA) | payer OTHER, SELFPAY | PROVIDERS: PCP Physician Assistant; Visit Provider Physician Assistant | DX: Z00.00 Encounter for general adult medical examination without abnormal findings (principal); E66.813 Obesity, class 3; B35.3 Tinea pedis; Z68.42 Body mass index [BMI] 45.0-49.9, adult; Z89.511 Acquired absence of right leg below knee | CPT/HCPCS: 96127 ==